=== PATIENT | male | born 1985 | race African-American/Black ===

== ENCOUNTER 2016-09-05 01:23 | Inpatient (IN) | payer BC, OTHER ==
[2016-09-05] VITALS (20 sets, daily range): BP systolic 129–178; BP diastolic 71–101; PULSE 75–117; RESP 18–89; TEMP 98.3; Ht 177.8 cm; Wt 78.8 kg
[~2016-09-05] VITALS: Ht 177.8 cm; Wt 78.8 kg
[~2016-09-05 01:23] MED LIST: CARV6.2545 PO; METO10TA92 PO; ONDA4TAB14 PO; PANT40TA3 PO; ULT50 PO
[2016-09-05] MEDS ORDERED: morphine 4 MG/ML VIAL IV STA ×2 (02:30→04:27)
[2016-09-05] MEDS ORDERED: ONDANSETRON 4 MG INJ IV STA (02:30)
[2016-09-05] MEDS ORDERED: hydrALAzine 20 MG INJ IV ONE ×2 (03:00→04:30)
[2016-09-05 03:33] LABS: ALBUMIN 4.5 g/dl (3.3-4.9); BASOPHILS % 0.5 % (0.0-2.0); EOSINOPHILS # 0.3 10^3/ul (0.0-0.5); EOSINOPHILS % 4.8 % (0.0-7.0); HEMATOCRIT 27.2 % (42.0-52.0); HEMOGLOBIN 9.2 g/dl (14.0-18.0); LYMPHOCYTES # 0.8 10^3/ul (0.8-2.9); LYMPHOCYTES % 13.5 % (15.0-51.0); MEAN CORPUSCULAR HEMOGLOBIN 30.1 pg (29.0-33.0); MEAN CORPUSCULAR HGB CONC 33.6 g/dl (32.0-37.0); MEAN CORPUSCULAR VOLUME 89.4 fl (82.0-101.0); MEAN PLATELET VOLUME 8.2 fl (7.4-10.4); MONOCYTE # 0.2 10^3/ul (0.3-0.9); MONOCYTES % 3.8 % (0.0-11.0); NEUTROPHIL # 4.8 10^3/ul (1.6-7.5); NEUTROPHILS % 77.4 % (39.0-77.0); PLATELET COUNT 197 10^3/UL (140-440); RED BLOOD COUNT 3.04 10^6/ul (4.70-6.10); RED CELL DISTRIBUTION WIDTH 16.7 % (11.5-14.5); UNCORRECTED WBC 6.2 10^3/ul (4.8-10.8); WHITE BLOOD COUNT 6.2 10^3/ul (4.8-10.8)
[2016-09-05 03:33] LABS: INR 1.11; PROTIME 14.3 Sec (12.2-14.2); PT RATIO 1.1
[2016-09-05 03:34] LABS: PARTIAL THROMBOPLASTIN TIME 34.7 Sec (25.0-35.0)
[2016-09-05 03:34] LABS: POTASSIUM 5.3 mmol/L (3.5-5.1)
[2016-09-05 03:36] LABS: BILIRUBIN,INDIRECT 0.6 mg/dl (0-1.1); BILIRUBIN,TOTAL 0.6 mg/dl (0.2-1.3)
[2016-09-05 03:37] LABS: CALCIUM 9.5 mg/dl (8.4-10.2)
[2016-09-05 03:46] LABS: CONDITION 1; LH ANALYZER COMMENTS 1
[2016-09-05 03:47] LABS: CREATININE 14.79 mg/dl (0.61-1.24)
[2016-09-05 03:48] LABS: TROPONIN-I 0.058 ng/ml (0.00-0.12)
--- NOTE | 2016-09-05 03:48 | RADRPT ---
PROCEDURE: CT of the abdomen and pelvis without contrast CLINICAL INDICATION: Patient experiencing Abdominal Pain. TECHNIQUE: Spiral CT images through the abdomen and pelvis without the use of contrast. The admin istered radiation dose is CTDI 8.55 and DLP 510.23. COMPARISON: 04/16/2013 FINDINGS: Lack of oral and intravenous contrast somewhat limits evaluation. The study is significantly limi yeison by patient breathing motion artifact. There has been interval development of mild cardiomegaly. Coronary artery calcification is seen. Slight dependent atelectasis of the lung bases is seen. N o pleural effusion is seen. Clips are seen from prior cholecystectomy. The liver is enlarged, amanda uring 23 cm in length. There is mild diffuse edema of the subcutaneous soft tissues. No gross foca l splenic lesions are seen. Diffuse atherosclerotic change of the abdomen and pelvis is seen. The kidneys are again noted to be enlarged with innumerable cysts and small calcifications. Some cysts are hemorrhagic or complex. The appearance is consistent with polycystic kidney disease. The pancr eas is suboptimally seen without contrast. No gross pancreatic mass is seen. Evaluation of the bow el is limited by lack of oral contrast. No gross bowel obstruction, free air, or abscess is seen. The bladder and prostate are unremarkable in appearance. Probable normal appendix is seen, contain ing a small of dense material within. Mild depression of the superior endplate of T11 and mild anter ior wedging of L1 are stable findings. IMPRESSION: Limited study due to patient motion and lack of contrast. Polycystic kidney disease. Interval deve lopment of cardiomegaly and progression of atherosclerotic change. Hepatomegaly. No gross bowel ob struction, free air, or abscess.. RPTAT: [facility] Physician Adonay Date Time Electronically viewed and signed by Physician Adonay on 09/05/2016 03:48 LE/
[2016-09-05] MEDS ORDERED: METOCLOPRAMIDE 10 MG INJ IV ONE (04:30)
[2016-09-05] MEDS ORDERED: NA POLYST SULFON 15 GM/60 ML BTL PO ONE (04:30)
[2016-09-05] MEDS ORDERED: ACETAMINOPHEN 325 MG TAB PO PRN ×2 (05:30→08:30)
[2016-09-05] MEDS ORDERED: ONDANSETRON 4 MG INJ IV PRN ×2 (05:30→08:30)
[2016-09-05] MEDS ORDERED: ASPIRIN 325 MG TAB PO ONE (07:00)
--- NOTE | 2016-09-05 07:06 | ERA ---
ER Documentation Chief Complaint Date/Time DATE: 09/05/16 TIME: 06:43 Chief Complaint sob, abd x 2 days HPI This 30-year-old male comes emergency room for shortness of breath and severe abdominal pain for the last 2 days. The pain is a sharp pain and is in his entire abdomen nothing makes it worse or better. He also complains of chest pain that is substernal and nonradiating. He missed his dialysis Tuesday because he didn't feel well. He believes the had dialysis on Tuesday. Physical in by his mother and does not believe that they can get him to dialysis today. He has nausea and vomiting is nonbloody and nonbilious. ROS All systems reviewed and are negative except as per history of present illness. Medications Home Meds Active Scripts Tramadol HCl (Tramadol HCl) 50 Mg Tablet, 50 MG PO Q6 Y for PAIN, #20 TAB Prov:ZURDO SUTHERLAND MD 07/06/16 Ondansetron (Ondansetron Odt) 4 Mg Tab.rapdis, 4 MG PO Q6H Y for NAUSEA AND/OR VOMITING, #30 TAB Prov:ZURDO SUTHERLAND MD 07/06/16 Reported Medications Pantoprazole* (Protonix*) 40 Mg Tablet.dr, 40 MG PO Y FOR GASTRIC UPSET 06/24/12 Carvedilol (Coreg) 6.25 Mg Tablet, 6.25 MG PO BID 06/24/12 Metoclopramide* (Reglan*) 10 Mg Tablet, 10 MG PO AC MEALS AND BEDTIME 06/24/12 Allergies Allergies: Coded Allergies: No Known Drug Allergies (Verified Allergy, Unknown, 07/06/16) PMhx/Soc History of Surgery: Yes (gallbladder removal 10) Anesthesia Reaction: No Hx Neurological Disorder: No Hx Respiratory Disorders: No Hx Cardiac Disorders: No Hx Psychiatric Problems: No Hx Miscellaneous Medical Probl: Yes (DM II, HTN, Renal failure, polysystic kidney disease) Hx Alcohol Use: No Hx Substance Use: Yes (Marijuana) Hx Tobacco Use: No Smoking Status: Unknown if ever smoked Physical Exam Vitals Vital Signs Date Time Temp Pulse Resp B/P Pulse Ox O2 Delivery O2 Flow Rate FiO2 09/05/16 04:40 114 24 169/125 100 Room Air 09/05/16 02:35 98.3 112 17 166/128 94 Room Air 09/05/16 01:25 98.9 59 18 173/116 92 Physical Exam Const: [] Mild distress, appears her and comfortable Head: Atraumatic Eyes: Normal Conjunctiva ENT: Normal External Ears, Nose and Mouth. Neck: Full range of motion..~ No meningismus. Resp: Decreased bibasilar breath sounds, otherwise good air movement Cardio: Regular rate and rhythm, no murmurs Abd: Soft, diffuse moderate abdominal tenderness without guarding or rebound , non distended. Normal bowel sounds Skin: No petechiae or rashes Back: No midline or flank tenderness Ext: No cyanosis, or edema Neur: Awake and alert and oriented 3, no focal deficits Psych: Normal Mood and Affect Result Diagram: 09/05/16 0300 09/05/16 0300 Results 24 hrs Laboratory Tests Test 09/05/16 02:30 09/05/16 03:00 Activated Partial Thromboplast Time 34.7Sec INR International Normalized Ratio 1.11 Prothrombin Time 14.3Sec Prothrombin Time Ratio 1.1 Alanine Aminotransferase (ALT/SGPT) 22IU/L Albumin 4.5g/dl Albumin/Globulin Ratio 1.00 Alkaline Phosphatase 188IU/L Anion Gap 28 Aspartate Amino Transf (AST/SGOT) 15IU/L Basophils # 0.010^3/ul Basophils % 0.5% Blood Morphology Comment Blood Urea Nitrogen 85mg/dl Calcium Level 9.5mg/dl Carbon Dioxide Level 20mmol/L Chloride Level 105mmol/L Creatinine 14.79mg/dl Direct Bilirubin 0.00mg/dl Eosinophils # 0.310^3/ul Eosinophils % 4.8% Globulin 4.50g/dl Glucose Level 86mg/dl Hematocrit 27.2% Hemoglobin 9.2g/dl Indirect Bilirubin 0.6mg/dl Lactic Acid Level 1.3mmol/L Lipase 254U/L Lymphocytes # 0.810^3/ul Lymphocytes % 13.5% Mean Corpuscular Hemoglobin 30.1pg Mean Corpuscular Hemoglobin Concent 33.6g/dl Mean Corpuscular Volume 89.4fl Mean Platelet Volume 8.2fl Monocytes # 0.210^3/ul Monocytes % 3.8% Neutrophils # 4.810^3/ul Neutrophils % 77.4% Nucleated Red Blood Cells # 0.010^3/ul Nucleated Red Blood Cells % 0.0/100WBC Platelet Count 79736^3/UL Potassium Level 5.3mmol/L Red Blood Count 3.0410^6/ul Red Cell Distribution Width 16.7% Sodium Level 148mmol/L Total Bilirubin 0.6mg/dl Total Protein 9.0g/dl Troponin I 0.058ng/ml White Blood Count 6.210^3/ul Current Medications Medications (Trade) Dose Ordered Sig/Lia Route PRN Reason Start Time Stop Time Status Last Admin Dose Admin Morphine Sulfate (morphine) 4 mg ONCE STAT IV 09/05/16 02:30 09/05/16 02:33 DC 09/05/16 03:07 Ondansetron HCl (Zofran Inj) 4 mg ONCE STAT IV 09/05/16 02:30 09/05/16 02:33 DC 09/05/16 03:06 Hydralazine HCl (Apresoline) 10 mg ONCE ONCE IV 09/05/16 03:00 09/05/16 03:01 DC 09/05/16 03:06 Hydralazine HCl (Apresoline) 20 mg ONCE ONCE IV 09/05/16 04:30 09/05/16 04:31 DC 09/05/16 05:02 Metoclopramide HCl (Reglan) 10 mg ONCE ONCE IV 09/05/16 04:30 09/05/16 04:31 DC 09/05/16 05:02 Morphine Sulfate (morphine) 4 mg ONCE STAT IV 09/05/16 04:27 09/05/16 04:29 DC 09/05/16 05:03 Sodium Polystyrene Sulfonate (Kayexalate) 30 gm ONCE ONCE PO 09/05/16 04:30 09/05/16 04:31 DC 09/05/16 05:02 Ondansetron HCl (Zofran Inj) 4 mg ER BRIDGE PRN IV NAUSEA AND/OR VOMITING 09/05/16 05:30 09/06/16 05:29 Acetaminophen (Tylenol Tab) 650 mg ER BRIDGE PRN PO MILD PAIN/FEVER 09/05/16 05:30 09/06/16 05:29 Procedures/MDM Abdominal pain and chest pain and patient admits dialysis. He has hyperkalemia. He was given Kayexalate emergency room but he vomited it. Given 4 of morphine for his abdominal pain which helped with a need another 4 because he started spreading from severe pain very shortly after. He was given Zofran, Reglan for his nausea. He also had very high blood pressure the face of chest pain making a hypertensive emergency. He was given hydralazine twice IV in order to lower his blood pressure. Spoke with the patient's mother and he said that she does not know how to arrange for dialysis today for him. Patient himself is not responsible and is not trustworthy enough to arrange dialysis for himself. He is not even sure if he went to dialysis on Tuesday or not. Spoke with Dr. Santiago who will be admitting the patient to telemetry. monitoring manager interpretation: Normal sinus rhythm without arrhythmia EKG interpretation: Normal sinus rhythm, normal axis, no ST or T-wave changes concerning for acute ischemia Abdominal CT interpretation: Limited by motion artifact but I see no obvious obstruction, fast stranding, free air, fractures Total care time 33 minutes: This includes treatment of her pretensive emergency with use of multiple doses IV vasoactive medications hydralazine, always the patient's bedside to assess cardiac status, chart review, discussion with admitting doctor patient patient's family. This does not include any billable procedures Departure Diagnosis: Primary Impression: Chest pain Additional Impressions: Acute on chronic renal failure Hyperkalemia Acute abdominal pain Condition: Stable KEIRA MCKEON DO Sep 05, 2016 06:54
[2016-09-05] MEDS ORDERED: FUROSEMIDE 40 MG INJ IV ONE (07:30)
[2016-09-05] MEDS ORDERED: DOCUSATE SODIUM 100 MG CAP PO PRN (08:30)
[2016-09-05] MEDS ORDERED: HYDROCODONE/APAP (5/325) TAB PO PRN (08:30)
[2016-09-05] MEDS ORDERED: morphine 2 MG INJ IV PRN (08:30)
[2016-09-05] MEDS ORDERED: NACL 0.9% 3 ML SYG IV SCH (08:30)
--- NOTE | 2016-09-05 10:41 | RADRPT ---
PROCEDURE: Chest 1 views. CLINICAL INDICATION: Shortness of breath TECHNIQUE: AP views of the chest were obtained. COMPARISON: April 16, 2013 FINDINGS: The heart is large. Right-sided dialysis catheter has its tip in the expected location of the distal superior vena cava. The lungs are hyperexpanded. No consolidations are identified. No pneumothora x is seen. Osseous structures are intact. IMPRESSION: Cardiomegaly . Right-sided dialysis catheter with its tip in the expected location of the distal superior vena cava . Hyperexpanded, clear lungs. RPTAT: AA .Oscar Nuñez MD, Date Time Electronically viewed and signed by .Oscar Nuñez MD, on 09/05/2016 10:40 .P/
--- NOTE | 2016-09-05 10:59 | HP ---
DATE OF ADMISSION: 09/05/2016 CHIEF COMPLAINT: Shortness of breath. HISTORY OF PRESENT ILLNESS: The patient is a 30-year-old male with a history of end-stage renal dis ease who presented to the ED with shortness of breath and abdominal pain for the past several days. This pain is a sharp pain in the entire abdomen. The patient missed dialysis for the past several days because he states that he was not feeling well. He follows up with Dr. Overton. He states that he receives dialysis every day except for Saturdays. The patient is a poor historian and is acutel y altered at this time, very lethargic. The patient reportedly did have nausea and vomiting that wa s nonbloody. Not much further history can be obtained from the patient. PAST MEDICAL HISTORY: End-stage renal disease, diabetes, hypertension, ____ disease. PAST SURGICAL HISTORY: Cholecystectomy. HOME MEDICATIONS: 1. Tramadol. 2. Zofran. 3. Protonix. 4. Coreg. 5. Reglan. ALLERGIES: NO KNOWN DRUG ALLERGIES. FAMILY HISTORY: Unknown. SOCIAL HISTORY: No reports of alcohol abuse. No reports of tobacco abuse. The patient uses mariju marguerite. REVIEW OF SYSTEMS: A 12-point review of systems is difficult to obtain as the patient is extremely lethargic at this time. PHYSICAL EXAMINATION: VITAL SIGNS: Temperature is 97.9, pulse 103, respiratory rate is 18, BP is 105/85, saturation 100% on room air. GENERAL: Altered. HEENT: Normocephalic, atraumatic. LUNGS: Clear to auscultation. CARDIOVASCULAR: Regular rate and rhythm. ABDOMEN: Nondistended, soft, tender to palpation in the epigastrium. EXTREMITIES: No clubbing, cyanosis, or edema. LABORATORIES: White count 6.2, hemoglobin is 9.2, platelets are 197. Chemistry: Sodium is 148, po tassium is 5.3, carbon dioxide is 20, anion gap is 28, BUN is 85, creatinine is 2.79. INR is 1.1. DIAGNOSTICS: Abdominal and pelvis CT shows limited study due to patient motion without contrast, po ssible kidney disease, cardiomegaly, hepatomegaly, no gross bowel obstruction, free air, or abscess. ASSESSMENT AND PLAN: 1. Acute encephalopathy, likely secondary to uremia. The patient will need dialysis. We will cons ult Dr. Overton who is the patient's chief lifestyle officer. 2. Shortness of breath likely secondary to volume overload. We will obtain a chest x-ray. Once ag ain, the patient will need dialysis. 3. Abdominal pain, etiology unclear. CT abdomen shows no acute findings, no obstruction, no absces s. We will monitor. 4. Hypertension. Continue home Coreg. 5. Prophylaxis. SCDs. Dictated By: RYLAND PATEL/FAUSTINO Conf#: [id number] DID#: [id number]
[2016-09-05] MEDS ORDERED: INFLUENZA VIRUS VACCINE 0.5 ML SYG IM* ONE (11:00)
--- NOTE | 2016-09-05 16:06 | CONS ---
Date/Time of Note Date/Time of Note DATE: 09/05/16 TIME: 15:46 Assessment/Plan Assessment/Plan Additional Assessment/Plan 1.Abd pain with nausea sec to unclear etiology 2.Nausea likely sec to uremia 3.Uremia sec to non compliant with outpt HD 4.Hyperkalemia sec to Ckd/non compliant with HD 5.Cardiomegaly sec to uncontrolled htn and ckd 6.ESRD on HD 7.ESRD sec to PCKD 8.Anemia sec to Ckd 9. Atherosclerotic heart disease 10.Hepatomegaly 11.Hypernatremia sec to poor po intake -HD today and in am -HD orders d/w HD RN -Monitor bp -GI eval for abd pain -Check amylase/lipase -Check iron studies. Epogen for anemia -Med list reviewed -Pt was seen by Dr Lux at [facility] Consultation Date/Type/Reason Admit Date/Time Sep 05, 2016 at 05:21 Reason for Consultation ESRD on HD Hx of Present Illness 30yo male well known to our service for recurrent admissions at [facility] for abd pain and non compliance with outpt HD. Pt presented to the ER sob, complaining of abd pain. Pt reports mild nausea but no diarrhea. Pts CT Abd shows findings consistent with PCKD and cardiomegaly. No acute findings were reported. CXR showed cardiomegaly. Pt reports not having had HD for several treatments because of his symptoms. His bp has been controlled. Pt denies symptoms of orthopnea and PND. K 5.3 on admission. Pt has a right IJ dialysis catheter thru which he receives HD. Pt reports no fevers or chills. No chest pain or palpitations Gastrointestinal: pain (abd pain, none at the time of my evaluation) Past Surgical History Past Surgical Hx: other (Right IJ HD catheter placement) Family History Significant Family History: no pertinent family hx Social History Alcohol Use: none Smoking Status: Never smoker Exam/Review of Systems Vital Signs Vitals Vital Signs Date Time Temp Pulse Resp B/P Pulse Ox O2 Delivery O2 Flow Rate FiO2 09/05/16 15:14 98.3 74 18 129/71 94 09/05/16 08:00 3.0 09/05/16 06:45 Room Air Exam Neck: other (Right IJ HD catheter) Results Result Diagram: 09/05/16 0300 09/05/16 0300 Results 24 hrs Laboratory Tests Test 09/05/16 02:30 09/05/16 03:00 Activated Partial Thromboplast Time 34.7 INR International Normalized Ratio 1.11 Prothrombin Time 14.3 H Prothrombin Time Ratio 1.1 Alanine Aminotransferase (ALT/SGPT) 22 Albumin 4.5 Albumin/Globulin Ratio 1.00 Alkaline Phosphatase 188 H Anion Gap 28 H Aspartate Amino Transf (AST/SGOT) 15 Basophils # 0.0 Basophils % 0.5 Blood Morphology Comment Blood Urea Nitrogen 85 H Calcium Level 9.5 Carbon Dioxide Level 20 L Chloride Level 105 Creatinine 14.79 H Direct Bilirubin 0.00 Eosinophils # 0.3 Eosinophils % 4.8 Globulin 4.50 H Glucose Level 86 Hematocrit 27.2 L Hemoglobin 9.2 L Indirect Bilirubin 0.6 Lactic Acid Level 1.3 Lipase 254 Lymphocytes # 0.8 Lymphocytes % 13.5 L Mean Corpuscular Hemoglobin 30.1 Mean Corpuscular Hemoglobin Concent 33.6 Mean Corpuscular Volume 89.4 Mean Platelet Volume 8.2 Monocytes # 0.2 L Monocytes % 3.8 Neutrophils # 4.8 Neutrophils % 77.4 H Nucleated Red Blood Cells # 0.0 Nucleated Red Blood Cells % 0.0 Platelet Count 197 Potassium Level 5.3 H Red Blood Count 3.04 L Red Cell Distribution Width 16.7 H Sodium Level 148 H Total Bilirubin 0.6 Total Protein 9.0 H Troponin I 0.058 White Blood Count 6.2 Medications Medications Current Medications Ondansetron HCl (Zofran Inj) 4 mg Q6H PRN IV NAUSEA AND/OR VOMITING; Start 09/05 at 08:30 Acetaminophen (Tylenol Tab) 650 mg Q6H PRN PO PAIN LEVEL 1-3 OR FEVER; Start at 08:30 Acetaminophen/ Hydrocodone Bitart ([place] (5/325)) 1 tab Q6H PRN PO MODERATE PAIN LEVEL 4-6; Start 09/05/16 at 08:30 Morphine Sulfate (morphine) 2 mg Q4H PRN IV SEVERE PAIN LEVEL 7-10; Start at 08:30 Docusate Sodium (Colace) 100 mg Q12H PRN PO CONSTIPATION; Start 09/05/16 at 08: 30 Pantoprazole (Protonix Iv) 40 mg DAILY@06 IV ; Start 09/06/16 at 06:00 Carvedilol (Coreg) 6.25 mg BID PO ; Start 09/05/16 at 09:00 DESIREE LOPES Sep 05, 2016 16:00
[2016-09-05] MEDS ORDERED: LACTULOSE 30ML CUP PO PRN (17:00)
[2016-09-05 17:25] LABS: IRON 69 ug/dl (35-150)
[2016-09-05 17:26] LABS: AMYLASE 156 U/L (11-123)
[2016-09-05] MEDS ORDERED: GLUCOSE GEL 15 GRAM TUBE PO PRN ×2 (17:30)
[2016-09-05] MEDS ORDERED: DEXTROSE 50% 50 ML SYRINGE IV PRN ×2 (17:30)
[2016-09-05] MEDS ORDERED: GLUCOSE GEL 15 GRAM TUBE BUCCAL PRN (17:30)
[2016-09-05] MEDS ORDERED: GLUCAGON 1 MG INJ IM PRN (17:30)
[2016-09-05 17:34] LABS: TOTAL IRON BINDING CAPACITY 227 ug/dl (241-421)
[2016-09-05] MEDS ORDERED: INSULIN ASPART [NOVOLOG] 3 ML PEN SC SCH (17:55)
[2016-09-06] MEDS ORDERED: ACCUCHECK XX SCH (02:00)
[2016-09-06] MEDS ORDERED: PANTOPRAZOLE 40 MG INJ IV SCH (06:00)
[2016-09-06] MEDS ORDERED: EPOETIN 10000 UNITS/1 ML INJ (ESRD) SC SCH (17:00)
== END 2016-09-05 20:41 | disposition left against medical advice (07) | DRG 640 ==
LOC: E/R 01:23 → TEL 05:21
PROVIDERS: ADMIT Internal Medicine; ATTEND Internal Medicine
DX: E87.70 Fluid overload, unspecified (principal); N18.6 End stage renal disease; E87.0 Hyperosmolality and hypernatremia; I12.0 Hypertensive chronic kidney disease with stage 5 chronic kidney disease or end stage renal disease; Z99.2 Dependence on renal dialysis; Z91.15 Patient's noncompliance with renal dialysis; D63.1 Anemia in chronic kidney disease; R10.9 Unspecified abdominal pain; E87.5 Hyperkalemia
CPT/HCPCS: 71010; 74176; 80053; 82150; 82962; 83540; 83605; 83690; 84134; 84484; 85025; 85610; 85730; 90686; 90935; 93005; J0360; J1815; J1940; J2270; J2405; J2765

== ENCOUNTER 2016-11-28 02:37 | Inpatient (IN) | payer BC ==
[2016-11-28] VITALS (23 sets, daily range): BP systolic 136–192; BP diastolic 83–117; PULSE 69–140; RESP 16–24; TEMP 97.6; Ht 177.8 cm; Wt 81.6 kg
[~2016-11-28] VITALS: Ht 177.8 cm; Wt 81.6 kg
[~2016-11-28 02:37] MED LIST changes: +TRAM50TA2 PO; -ULT50 PO
--- NOTE | 2016-11-28 03:54 | RADRPT ---
PROCEDURE: XR Chest. CLINICAL INDICATION: Abdominal Pain TECHNIQUE: Portable single view of the chest COMPARISON: 09/05/2016 FINDINGS: Again seen is cardiomegaly and double-lumen right internal jugular catheter. Lung volumes are sligh tly reduced compared with prior but no definite acute infiltrate, pleural effusion, or overt congest mehreen heart failure is seen. No bony abnormality is seen. IMPRESSION: Shallower lung inflation. No definite acute disease. RPTAT: HLBE Jessica Bernal Physician Date Time Electronically viewed and signed by Jessica Bernal, Physician on 11/28/2016 03:54 LE/
--- NOTE | 2016-11-28 04:28 | ERD ---
ER Documentation Chief Complaint Date/Time DATE: 11/28/16 TIME: 04:27 Chief Complaint SOB, dialysis pt_dialyzed , insomnia HPI 30-year-old man presents with shortness of breath and complaints of pain, requesting "medications" he is chronically noncompliant with dialysis states he was due on Tuesday but he missed it. He denies fevers or chills, no vomiting or diarrhea, no chest pain, no melena or blood per rectum. ROS All systems reviewed and are negative except as per history of present illness. Medications Home Meds Active Scripts Tramadol HCl (Tramadol HCl) 50 Mg Tablet, 50 MG PO Q6 Y for PAIN, #20 TAB Prov:ZURDO SUTHERLAND MD 07/06/16 Ondansetron (Ondansetron Odt) 4 Mg Tab.rapdis, 4 MG PO Q6H Y for NAUSEA AND/OR VOMITING, #30 TAB Prov:ZURDO SUTHERLAND MD 07/06/16 Reported Medications Pantoprazole* (Protonix*) 40 Mg Tablet.dr, 40 MG PO Y FOR GASTRIC UPSET 06/24/12 Carvedilol (Coreg) 6.25 Mg Tablet, 6.25 MG PO BID 06/24/12 Metoclopramide* (Reglan*) 10 Mg Tablet, 10 MG PO AC MEALS AND BEDTIME 06/24/12 Allergies Allergies: Coded Allergies: No Known Drug Allergies (Verified Allergy, Unknown, 07/06/16) PMhx/Soc Anxiety, chronic pain syndrome, drug abuse and opioid dependence, cardiomyopathy , hypertension, medication noncompliance, diabetes mellitus, end-stage kidney disease on hemodialysis, chronic uremia, anemia History of Surgery: Yes (CHOLECYSTECTOMY, BILATERAL FEET PARTIAL AMPUTEE, R CW PERMACATH) Anesthesia Reaction: No Hx Neurological Disorder: No Hx Respiratory Disorders: No Hx Cardiac Disorders: Yes (HTN) Hx Psychiatric Problems: No Hx Miscellaneous Medical Probl: Yes (ESRD WITH HD) Hx Alcohol Use: No Hx Substance Use: Yes (MARIJUANA) Hx Tobacco Use: No Smoking Status: Current every day smoker FmHx Family History: No diabetes Physical Exam Vitals Vital Signs Date Time Temp Pulse Resp B/P Pulse Ox O2 Delivery O2 Flow Rate FiO2 11/28/16 04:30 100 2.0 28 11/28/16 03:43 Nasal Cannula 2 11/28/16 03:33 98.4 116 21 160/126 97 Room Air 11/28/16 02:41 99.3 114 20 178/120 94 Physical Exam GENERAL: Well-developed, well-nourished, anxious, hypertensive, appears intoxicated with either opioid analgesics or benzodiazepines HEENT: Dry mucous membranes, pink conjunctiva, no cervical spine tenderness or step-off deformities, no goiter, no jaundice or icterus, extraocular movements intact without pain. No submandibular induration, and no pharyngeal erythema NEURO: Alert and oriented 3, cranial nerves II through XII intact bilaterally, pupils equal round reactive to light, no focal deficits or facial asymmetry, sensation intact distally Strength 5/5 in upper and lower extremities bilaterally CARDIAC: Tachycardic and regular no murmurs rubs or gallops LUNGS: Bibasilar crackles, no wheezing or stridor ABDOMEN: Soft nontender, no guarding, no rigidity, no rebound, no psoas sign no obturator sign. Normoactive bowel sounds SKIN: Warm and dry to touch, no abrasions, contusions, or hematomas, no lacerations, no ecchymosis, no target lesions, and without ulcers EXTREMITIES: 2+ pitting edema in the lower extremities bilaterally, calves are bilaterally symmetrical, no Homans sign, no popliteal cord sign. Distal pulses equal and bilateral PSYCH: Agitated, crying Result Diagram: 11/28/16 0330 11/28/16 0330 Results 24 hrs Laboratory Tests Test 11/28/16 03:30 11/28/16 04:16 White Blood Count 6.710^3/ul Red Blood Count 2.9510^6/ul Hemoglobin 8.8g/dl Hematocrit 27.3% Mean Corpuscular Volume 92.5fl Mean Corpuscular Hemoglobin 29.8pg Mean Corpuscular Hemoglobin Concent 32.2g/dl Red Cell Distribution Width 17.7% Platelet Count 82313^3/UL Mean Platelet Volume 9.6fl Neutrophils % 71.6% Lymphocytes % 19.5% Monocytes % 5.7% Eosinophils % 2.5% Basophils % 0.3% Nucleated Red Blood Cells % 0.0/100WBC Neutrophils # 4.810^3/ul Lymphocytes # 1.310^3/ul Monocytes # 0.410^3/ul Eosinophils # 0.210^3/ul Basophils # 0.010^3/ul Nucleated Red Blood Cells # 0.010^3/ul Sodium Level 137mmol/L Potassium Level 4.8mmol/L Chloride Level 95mmol/L Carbon Dioxide Level 23mmol/L Anion Gap 24 Blood Urea Nitrogen 55mg/dl Creatinine 10.87mg/dl Glucose Level 214mg/dl Calcium Level 9.2mg/dl Total Bilirubin 0.7mg/dl Direct Bilirubin 0.00mg/dl Indirect Bilirubin 0.7mg/dl Aspartate Amino Transf (AST/SGOT) 25IU/L Alanine Aminotransferase (ALT/SGPT) 29IU/L Alkaline Phosphatase 148IU/L Troponin I Pending Total Protein 7.5g/dl Albumin 3.7g/dl Globulin 3.80g/dl Albumin/Globulin Ratio 0.97 Lipase 124U/L Ammonia 24umol/l Current Medications Medications (Trade) Dose Ordered Sig/Lia Route PRN Reason Start Time Stop Time Status Last Admin Dose Admin Lorazepam (Ativan) 0.5 mg ONCE ONCE PO 11/28/16 05:00 11/28/16 05:01 DC 11/28/16 05:03 Lorazepam (Ativan) 0.5 mg ONCE ONCE IV 11/28/16 05:30 11/28/16 05:31 Procedures/MDM IV line was established patient was placed on marketing underwriter rhythm strip revealed a sinus tachycardia at 120 bpm with upright P and T waves. Patient was afebrile. One view chest x-ray performed, read by me there is hemodialysis catheter in the right chest and cardiomegaly with atelectatic changes bilaterally and bilateral pulmonary vascular congestion, no acute infiltrates, no pneumothorax. EKG performed, read by me revealed a sinus tachycardia at 115 bpm, normal axis, narrow QRS complex, no concerning ST elevations or depressions noted. CBC reveals anemia with hematocrit of 27, electrolytes reveal kidney failure with a BUN/creatinine of 55/11, liver function tests normal, troponin was negative. Ammonia level was normal. CT scan of the brain was performed is negative for acute bleed mass or shift. Patient will be admitted to [facility] for continued medical management and hemodialysis. Departure Diagnosis: Primary Impression: Chronic pain Chronic pain type: chronic pain syndrome Qualified Code: G89.4 - Chronic pain syndrome Additional Impressions: End stage kidney disease Anemia Anemia type: unspecified type Qualified Code: D64.9 - Anemia, unspecified type Condition: MELISSA Rudd MD Nov 28, 2016 04:28
[2016-11-28 04:33] LABS: ADD SCAN DIFF NO
[2016-11-28 04:41] LABS: BASOPHILS % 0.3 % (0.0-2.0); EOSINOPHILS # 0.2 10^3/ul (0.0-0.5); EOSINOPHILS % 2.5 % (0.0-7.0); HEMATOCRIT 27.3 % (42.0-52.0); HEMOGLOBIN 8.8 g/dl (14.0-18.0); LYMPHOCYTES # 1.3 10^3/ul (0.8-2.9); LYMPHOCYTES % 19.5 % (15.0-51.0); MEAN CORPUSCULAR HEMOGLOBIN 29.8 pg (29.0-33.0); MEAN CORPUSCULAR HGB CONC 32.2 g/dl (32.0-37.0); MEAN CORPUSCULAR VOLUME 92.5 fl (82.0-101.0); MEAN PLATELET VOLUME 9.6 fl (7.4-10.4); MONOCYTE # 0.4 10^3/ul (0.3-0.9); MONOCYTES % 5.7 % (0.0-11.0); NEUTROPHIL # 4.8 10^3/ul (1.6-7.5); NEUTROPHILS % 71.6 % (39.0-77.0); PLATELET COUNT 193 10^3/UL (140-415); RED BLOOD COUNT 2.95 10^6/ul (4.70-6.10); RED CELL DISTRIBUTION WIDTH 17.7 % (11.5-14.5); WHITE BLOOD COUNT 6.7 10^3/ul (4.8-10.8)
[2016-11-28 04:52] LABS: ALBUMIN 3.7 g/dl (3.3-4.9)
[2016-11-28 04:53] LABS: POTASSIUM 4.8 mmol/L (3.5-5.1)
[2016-11-28 04:55] LABS: ALBUMIN/GLOBULIN RATIO 0.97; BILIRUBIN,INDIRECT 0.7 mg/dl (0-1.1); BILIRUBIN,TOTAL 0.7 mg/dl (0.2-1.3); CREATININE 10.87 mg/dl (0.61-1.24); TOTAL PROTEIN 7.5 g/dl (6.1-8.1)
[2016-11-28 04:56] LABS: CALCIUM 9.2 mg/dl (8.4-10.2)
[2016-11-28] MEDS ORDERED: LORAZEPAM 0.5 MG TAB PO ONE (05:00)
[2016-11-28 05:06] LABS: TROPONIN-I 0.074 ng/ml (0.00-0.12)
--- NOTE | 2016-11-28 05:10 | RADRPT ---
PROCEDURE: CT BRAIN WITHOUT CONTRAST CLINICAL INDICATION: 30-year-old male with altered level of consciousness. TECHNIQUE: The study was performed utilizing a GE drop.iopeed VCT 64-slice CT scanner. Direct axia l sections were obtained from the foramen magnum to the vertex without the use of intravenous contra st material. Sagittal and coronal reformations were obtained. One or more the following dose reduct ion techniques were utilized: automated exposure control, adjustment of the mA and/or kV according t o patient's size or use of iterative reconstruction technique. The images were viewed on a PACS [employer]. CTD/vol = 44.3 mGy; Total Exam DLP = 720.2 mGy-cm. COMPARISON: None. FINDINGS: The ventricles have a normal size, shape and position. There is no evidence for mass effect or midl ine shift. There are no intracranial areas of abnormal attenuation. There is no evidence for acute intra or extra-axial blood. The bony calvarium is intact. The partially visualized paranasal sinuse s and mastoid air cells are without significant abnormal soft tissue. IMPRESSION: Unremarkable noncontrast CT scan of the brain. .Hermann Dean MD, Date Time Electronically viewed and signed by .Hermann Dean MD, on 11/28/2016 05:10 .M/
[2016-11-28] MEDS ORDERED: LORAZEPAM 2 MG INJ IV ONE ×2 (05:30→07:00)
[2016-11-28] MEDS ORDERED: ACETAMINOPHEN 325 MG TAB PO PRN (07:00)
[2016-11-28] MEDS ORDERED: hydrALAzine 20 MG INJ IV ONE (07:00)
[2016-11-28] MEDS ORDERED: ONDANSETRON 4 MG INJ IV PRN (07:00)
[2016-11-28] MEDS ORDERED: traMADol 50 MG TAB PO PRN (07:00)
[2016-11-28] MEDS ORDERED: hydrALAzine 20 MG INJ IV PRN (07:00)
[2016-11-28] MEDS ORDERED: LORAZEPAM 2 MG INJ IV PRN ×2 (07:00→16:45)
[2016-11-28] MEDS: METOCLOPRAMIDE 10 MG TAB PO SCH ×3 (07:56→17:31)
[2016-11-28] MEDS ORDERED: PANTOPRAZOLE (EC) 40 MG TAB PO SCH (08:00)
[2016-11-28] MEDS: INSULIN ASPART [NOVOLOG] 3 ML PEN SC SCH ×3 (08:15→17:30)
[2016-11-28] MEDS ORDERED: GLUCOSE GEL 15 GRAM TUBE BUCCAL PRN (08:30)
[2016-11-28] MEDS ORDERED: GLUCAGON 1 MG INJ IM PRN (08:30)
[2016-11-28] MEDS ORDERED: DEXTROSE 50% 50 ML SYRINGE IV PRN ×2 (08:30)
[2016-11-28] MEDS ORDERED: GLUCOSE GEL 15 GRAM TUBE PO PRN ×2 (08:30)
[2016-11-28] MEDS ORDERED: LORAZEPAM 2 MG INJ IV STA (08:40)
--- NOTE | 2016-11-28 11:08 | CONS ---
DATE OF ADMISSION: 11/28/2016 DATE OF CONSULTATION: 11/28/2016 TYPE OF CONSULTATION: Nephrology. REASON FOR CONSULTATION: End-stage renal disease, shortness of breath, and agitation. HISTORY OF PRESENT ILLNESS: This is a 30-year-old male with the past medical history of end-stage r enal disease with unknown hemodialysis schedule, possibly Tuesday, , and Tuesday, who prese nts to [facility] with shortness of breath stating that he missed his dialysis on Tuesday. The patient has a history of medical noncompliance, history of hypertension, anemia. Upo n arrival to the emergency room, the patient had a CT scan of the brain which was negative for acute bleed as the patient was hypertensive with systolic pressures in the 180s. The patient also had a chest x-ray which showed low lung shallow lung cervantes, no definitive acute disease. In the emergenc y room, the patient was given Clonidine and Ativan due to agitation and admitted to med/surg. The p atient, while on med/surg, had acute decompensation and became more agitated and tachypneic, and was transferred to telemetry. Currently, upon my evaluation, the patient is lethargic, tachypneic on 1 00% nonrebreather, unable to answer questions. There have been no reports of hemoptysis, hemetemesi s, hematochezia. PAST MEDICAL HISTORY: End-stage renal disease, history of hypertension, history of medical noncompl iance, history of gastroesophageal reflux disease. Also, history of diabetes. PAST SURGICAL HISTORY: Status post PermCath placement. ALLERGIES: NO KNOWN DRUG ALLERGIES. FAMILY HISTORY: Noncontributory. SOCIAL HISTORY: Unknown. REVIEW OF SYSTEMS: Unable to do adequate review of systems as patient is altered. Pertinent positi ves obtained by reviewing medical records, speaking to hospital staff, stated in HPI, otherwise nega tive. PHYSICAL EXAMINATION: VITAL SIGNS: Blood pressure is 161/130, respirations 26, pulse 110, temperature 97.6. HEENT: Head is normocephalic. Pupils are reactive to light. NECK: Supple. HEART: Tachycardic. LUNGS: Show diminished breath sounds at base. ABDOMEN: Soft, nontender to palpation. No rebound or guarding. EXTREMITIES: Negative for clubbing, cyanosis. Positive edema. DERMATOLOGIC: No rashes. MUSCULOSKELETAL: No joint effusions. NEUROLOGIC: Limited exam due to lack of patient cooperation, but no obvious focal deficits. LABORATORY DATA: Shows sodium 137, potassium 4.8, chloride 95, BUN 55, creatinine 2.87. White coun t 6.7, hemoglobin 8.8, hematocrit 27.3, platelet count is 193. IMAGING STUDIES: As stated in HPI. ASSESSMENT AND PLAN: This is a 30-year-old male who presents with 1. End-stage renal disease. Last hemodialysis unknown. Dialysis schedule unknown. The patient's access is PermCath. Plan is for urgent hemodialysis for solute clearance and volume removal. The p atient has volume overload clinically and is tachypneic in respiratory failure. We will dialyze for 3 hours, 2K bath, calcium 2.5. We will monitor dialysis closely. 2. Acute hypoxemic respiratory failure. Etiology is possibly due to volume overload. We will cont inue dialyze the patient as stated above and monitor closely. Consider a pulmonary consult. The pa kori is currently on 100% nonrebreather. 3. Anemia of chronic disease. Continue to monitor H and H levels. We will give Epogen as needed. 4. Mineral bone disorder. Continue to monitor calcium and phosphorus levels. Defer phosphate bind ers at this time. 5. Hypertensive urgency in part due to increased intravascular volume. We will ultrafiltrate with hemodialysis. Continue current blood pressure regimen. 6. Acute encephalopathy. Etiology may be secondary to underlying uremia. Questionable polysubstan ce abuse. Would recommend to check a tox screen. Continue dialysis. 7. History of medical noncompliance. 8. History of diabetes. Continue Accu-Cheks and insulin sliding scale. Thank you, Dr. Bill, for this interesting consultation. It will be a pleasure to follow the patient with you throughout the hospital course. Dictated By: SHAJI SANTIAGO/FAUSTINO Conf#: [id number] DID#: [id number]
[2016-11-28] MEDS ORDERED: HEPARIN 1000 UNITS/ML 10 ML INJ CATHETER ONE (11:30)
--- NOTE | 2016-11-28 11:51 | HP ---
Date/Time of Note Date/Time of Note DATE: 11/28/16 TIME: 11:41 Assessment/Plan VTE Prophylaxis VTE Prophylaxis Intervention: heparin Lines/Catheters IV Catheter Type (from Nrs): Saline Lock Assessment/Plan Assessment/Plan 1. Shortness of Breath, after missed dialysis - will place a nephrology consult 2. ESRD on HD - see above 3. Anxiety - will provide anti-anxiety meds 4. HTN: not at goal - cont DORON meds with adjustment as needed. expect further improvement after dialysis HPI/ROS Admit Date/Time Admit Date/Time Nov 28, 2016 at 05:15 Hx of Present Illness The patient is a 30-year-old male with a history of end-stage renal disease, HTN and anemia who presented to the ED with shortness of breath after missing dialysis and anxiety. In ER, BP was 178/120 with HR of 114. Cr ~ 11, BUN 55, K+ 4.8 and HCO3 23. CXR showed Lung volumes are slightly reduced compared with prior but no definite acute infiltrate, pleural effusion, or overt congestive heart failure is seen. Head CT neg for cute findings. . PMH/Family/Social Past Medical History Medical History: hypertension, renal disease Past Surgical History Past Surgical Hx: other Social History Alcohol Use: none Smoking Status: Never smoker Drug Use: marijuana Exam/Review of Systems Vital Signs Vitals Vital Signs Date Time Temp Pulse Resp B/P Pulse Ox O2 Delivery O2 Flow Rate FiO2 11/28/16 11:38 98.2 101 20 144/87 98 11/28/16 08:00 Nasal Cannula 5.0 11/28/16 04:30 28 Exam Constitutional: distress, other (moderate anxiety and shortness of breath) Head: atraumatic, normocephalic Eyes: EOMI, PERRL Respiratory: diminished breath sounds Cardiovascular: other (tachycardic with regular rhythm) Gastrointestinal: non-tender, soft Extremities: edema, other (bilateral toe amputated) Labs Result Diagram: 11/28/16 03311/28/16 033 Medications Medications Current Medications Hydralazine HCl (Apresoline) 10 mg Q4H PRN IV sbp above 160 Last administered on 11/28/16t 11:02; Admin Dose 10 MG; Start 11/28/16 at 07:00 Lorazepam (Ativan) 1 mg Q6H PRN IV anxiety Last administered on 11/28/16 10:20 ; Admin Dose 1 MG; Start 11/28/16 at 07:00 Acetaminophen (Tylenol Tab) 650 mg Q6H PRN PO PAIN AND OR ELEVATED TEMP; Start 11/28/16 at 07:00 Ondansetron HCl (Zofran Inj) 4 mg Q6H PRN IV NAUSEA AND/OR VOMITING; Start 11/28 at 07:00 Carvedilol (Coreg) 6.25 mg BID PO Last administered on 11/28/16 08:03; Admin Dose 6.25 MG; Start 11/28/16 at 08:00 Tramadol HCl (Ultram) 50 mg Q6 PRN PO PAIN; Start 11/28/16 at 07:00 Diagnostic Test (Pha) (Accu-Chek) 1 ea 02 XX ; Start 11/29/16 at 02:00 Miscellaneous Information 1 ea NOTE XX ; Start 11/28/16 at 08:30 Glucose (Glutose) 15 gm Q15M PRN PO DECREASED GLUCOSE; Start 11/28/16 at 08:30 Glucose (Glutose) 22.5 gm Q15M PRN PO DECREASED GLUCOSE; Start 11/28/16 at 08:30 Dextrose (D50w Syringe) 25 ml Q15M PRN IV DECREASED GLUCOSE; Start 11/28/16 at 08:30 Dextrose (D50w Syringe) 50 ml Q15M PRN IV DECREASED GLUCOSE; Start 11/28/16 at 08:30 Glucagon (Glucagen) 1 mg Q15M PRN IM DECREASED GLUCOSE; Start 11/28/16 at 08:30 Glucose (Glutose) 15 gm Q15M PRN BUCCAL DECREASED GLUCOSE; Start 11/28/16 at 08: 30 CHENTE STEEL MD Nov 28, 2016 11:51
--- NOTE | 2016-11-28 17:26 | CONS ---
Date/Time of Note Date/Time of Note DATE: 11/28/16 TIME: 17:17 Assessment/Plan Assessment/Plan Chief Complaint/Hosp Course Assessment: Nonsustained ventricular tachycardia Accelerated hypertension - blood pressures now improved Shortness of breath - ? volume overload, though not grossly overloaded by exam Acute encephalopathy End-stage renal disease - on hemodialysis per nephrology Polycystic kidney disease Anemia Medical noncompliance Recommendations: -continue telemetry monitoring -obtain transthoracic echocardiogram -check magnesium - keep K>4 and Mg>2 -increase carvedilol to 12.5mg BID Problems: Consultation Date/Type/Reason Admit Date/Time Nov 28, 2016 at 05:15 Type of Consultation: Cardiology Reason for Consultation ventricular tachycardia Hx of Present Illness The patient is a 30 year-old male with end-stage renal disease who presents with shortness of breath after missing hemodialysis. Since admission, he was noted on telemetry to have short runs of nonsustained ventricular tachycardia up to six beats. It is uncertain if the patient has any underlying cardiac disease. The patient is lethargic (? from Ativan) and not cooperative with providing any history. Unable to obtain, patient is lethargic. Past Medical History End-stage renal disease - on hemodialysis Polycystic kidney disease Hypertension Anemia Medical noncompliance Past Surgical History Unable to obtain Family History Significant Family History: other (unable to obtain) Social History Unable to obtain Smoking Status: Never smoker Exam/Review of Systems Vital Signs Vitals Vital Signs Date Time Temp Pulse Resp B/P Pulse Ox O2 Delivery O2 Flow Rate FiO2 11/28/16 16:14 98.2 97 20 136/87 98 11/28/16 12:00 Nasal Cannula 6.0 11/28/16 04:30 28 Exam Constitutional: No alert, No distress Psych: other (lethargic), No nl mood/affect Head: atraumatic, normocephalic Eyes: nl conjunctiva, nl lids ENMT: nl external ears & nose, nl nasal mucosa & septum Neck: non-tender, supple, No jvd Respiratory: clear to auscultation, No crackles/rales Cardiovascular: regular rate and rhythm Gastrointestinal: non-tender, soft Musculoskeletal: nl extremities to inspection Extremities: No clubbing, No cyanosis, No edema Neurological: lethargic, No nl mental status, No nl speech Results Result Diagram: 11/28/16 0330 11/28/16 0330 Results 24 hrs Laboratory Tests Test 11/28/16 03:30 11/28/16 04:16 11/28/16 08:02 11/28/16 09:32 White Blood Count 6.7 Red Blood Count 2.95 L Hemoglobin 8.8 L Hematocrit 27.3 L Mean Corpuscular Volume 92.5 Mean Corpuscular Hemoglobin 29.8 Mean Corpuscular Hemoglobin Concent 32.2 Red Cell Distribution Width 17.7 H Platelet Count 193 Mean Platelet Volume 9.6 Neutrophils % 71.6 Lymphocytes % 19.5 Monocytes % 5.7 Eosinophils % 2.5 Basophils % 0.3 Nucleated Red Blood Cells % 0.0 Neutrophils # 4.8 Lymphocytes # 1.3 Monocytes # 0.4 Eosinophils # 0.2 Basophils # 0.0 Nucleated Red Blood Cells # 0.0 Sodium Level 137 Potassium Level 4.8 Chloride Level 95 L Carbon Dioxide Level 23 Anion Gap 24 H Blood Urea Nitrogen 55 H Creatinine 10.87 H Glucose Level 214 Calcium Level 9.2 Total Bilirubin 0.7 Direct Bilirubin 0.00 Indirect Bilirubin 0.7 Aspartate Amino Transf (AST/SGOT) 25 Alanine Aminotransferase (ALT/SGPT) 29 Alkaline Phosphatase 148 H Troponin I 0.074 Total Protein 7.5 Albumin 3.7 Globulin 3.80 H Albumin/Globulin Ratio 0.97 Lipase 124 Ammonia 24 Bedside Glucose 129 137 Test 11/28/16 12:15 Bedside Glucose 109 Medications Medications Current Medications Hydralazine HCl (Apresoline) 10 mg Q4H PRN IV sbp above 160 Last administered on 11/28/16 11:02; Admin Dose 10 MG; Start 11/28/16 at 07:00 Acetaminophen (Tylenol Tab) 650 mg Q6H PRN PO PAIN AND OR ELEVATED TEMP; Start 11/28/16 at 07:00 Ondansetron HCl (Zofran Inj) 4 mg Q6H PRN IV NAUSEA AND/OR VOMITING; Start 11/28 at 07:00 Carvedilol (Coreg) 6.25 mg BID PO Last administered on 11/28/16 08:03; Admin Dose 6.25 MG; Start 11/28/16 at 08:00 Tramadol HCl (Ultram) 50 mg Q6 PRN PO PAIN Last administered on 11/28/16 16:48 ; Admin Dose 50 MG; Start 11/28/16 at 07:00 Diagnostic Test (Pha) (Accu-Chek) 1 ea 02 XX ; Start 11/29/16 at 02:00 Miscellaneous Information 1 ea NOTE XX ; Start 11/28/16 at 08:30 Glucose (Glutose) 15 gm Q15M PRN PO DECREASED GLUCOSE; Start 11/28/16 at 08:30 Glucose (Glutose) 22.5 gm Q15M PRN PO DECREASED GLUCOSE; Start 11/28/16 at 08:30 Dextrose (D50w Syringe) 25 ml Q15M PRN IV DECREASED GLUCOSE; Start 11/28/16 at 08:30 Dextrose (D50w Syringe) 50 ml Q15M PRN IV DECREASED GLUCOSE; Start 11/28/16 at 08:30 Glucagon (Glucagen) 1 mg Q15M PRN IM DECREASED GLUCOSE; Start 11/28/16 at 08:30 Glucose (Glutose) 15 gm Q15M PRN BUCCAL DECREASED GLUCOSE; Start 11/28/16 at 08: 30 Lorazepam (Ativan) 1 mg Q4H PRN IV anxiety Last administered on 11/28/16t 16:48 ; Admin Dose 1 MG; Start 11/28/16 at 16:45 ALINA WHITE MD Nov 28, 2016 17:26
[2016-11-28 17:44] LABS: BARBITURATES Negative (NEGATIVE); BENZODIAZEPINES Negative (NEGATIVE); CANNABINOIDS Positive (NEGATIVE); COCAINE Negative (NEGATIVE); OPIATES Negative (NEGATIVE)
--- NOTE | 2016-11-28 20:40 | RADRPT ---
PROCEDURE: CT Brain without. CLINICAL INDICATION: Confusion TECHNIQUE: A CT of the brain was performed utilizing axial sections from the skull base through th e vertex without contrast. The scan was reviewed in soft tissue brain and high frequency resolution bone algorithm windows. Images were reviewed on a high-resolution PACS workstation. The exam DLP = 720 mGy-cm. COMPARISON: Same day CT at 04:55 a.m. FINDINGS: The ventricles and sulci are symmetric and normal in size and morphology. There is no acute intracr anial hemorrhage, an acute large territorial infarct, an abnormal extra-axial fluid collection, or a space-occupying intracranial mass. There is no mass effect or midline shift. The smith-white matte r differentiation is intact. The posterior fossa, brainstem, and basal cisterns are unremarkable. There is generalized thickening of the skull with a [id number]-livlcc appearance with slight loss of d istinction of the inner and outer table. There are no acute fractures. The visualized mastoid air c ells and paranasal sinuses are clear. The bilateral globes and orbits are unremarkable. RPTAT: EE IMPRESSION: 1. No acute intracranial abnormality. 2. Abnormal appearance of the calvarium with generalized thickening with a salt and pepper appearan ce. This can be seen with secondary hyperparathyroidism from renal disease - the patient has a hist ory of polycystic kidney disease. .Vera Vidal MD, MD Date Time Electronically viewed and signed by .Vera Vidal MD, on 11/28/2016 20:39 .T/
--- NOTE | 2016-11-28 22:21 | DS ---
Date/Time of Note Date/Time of Note DATE: 11/28/16 TIME: 22:18 Discharge Summary Admission/Discharge Info Admit Date/Time Nov 28, 2016 at 05:15 Discharge Date/Time Nov 28, 2016 at 20:52 Final Diagnosis Nonsustained ventricular tachycardia Accelerated hypertension Shortness of breath Acute encephalopathy End-stage renal disease - on hemodialysis per nephrology Polycystic kidney disease Anemia Medical noncompliance Left AMA Patient Condition: Guarded Hx of Present Illness The patient is a 30-year-old male with a history of end-stage renal disease, HTN and anemia who presented to the ED with shortness of breath after missing dialysis and anxiety. In ER, BP was 178/120 with HR of 114. Cr ~ 11, BUN 55, K+ 4.8 and HCO3 23. CXR showed Lung volumes are slightly reduced compared with prior but no definite acute infiltrate, pleural effusion, or overt congestive heart failure is seen. Head CT neg for cute findings. . Hospital Course Pt was dialyzed with improvement of his shortness of breath. unfortunately, pt has left AMA on day of admission. He has hx of non-compliance. He was no longer anxious at the time he left AMA. Home Meds Active Scripts Tramadol HCl (Tramadol HCl) 50 Mg Tablet, 50 MG PO Q6 Y for PAIN, #20 TAB Prov:ZURDO SUTHERLAND MD 07/06/16 Ondansetron (Ondansetron Odt) 4 Mg Tab.rapdis, 4 MG PO Q6H Y for NAUSEA AND/OR VOMITING, #30 TAB Prov:ZURDO SUTHERLAND MD 07/06/16 Reported Medications Pantoprazole* (Protonix*) 40 Mg Tablet.dr, 40 MG PO Y FOR GASTRIC UPSET 06/24/12 Carvedilol (Coreg) 6.25 Mg Tablet, 6.25 MG PO BID 06/24/12 Metoclopramide* (Reglan*) 10 Mg Tablet, 10 MG PO AC MEALS AND BEDTIME 06/24/12 Pending Labs Laboratory Tests Test 11/28/16 03:30 11/28/16 04:16 11/28/16 08:02 11/28/16 09:32 White Blood Count 6.710^3/ul (4.8-10.8) Red Blood Count 2.9510^6/ul (4.70-6.10) Hemoglobin 8.8g/dl (14.0-18.0) Hematocrit 27.3% (42.0-52.0) Mean Corpuscular Volume 92.5fl (82.0-101.0) Mean Corpuscular Hemoglobin 29.8pg (29.0-33.0) Mean Corpuscular Hemoglobin Concent 32.2g/dl (32.0-37.0) Red Cell Distribution Width 17.7% (11.5-14.5) Platelet Count 84615^3/UL (140-415) Mean Platelet Volume 9.6fl (7.4-10.4) Neutrophils % 71.6% (39.0-77.0) Lymphocytes % 19.5% (15.0-51.0) Monocytes % 5.7% (0.0-11.0) Eosinophils % 2.5% (0.0-7.0) Basophils % 0.3% (0.0-2.0) Nucleated Red Blood Cells % 0.0/100WBC (0.0-0.0) Neutrophils # 4.810^3/ul (1.6-7.5) Lymphocytes # 1.310^3/ul (0.8-2.9) Monocytes # 0.410^3/ul (0.3-0.9) Eosinophils # 0.210^3/ul (0.0-0.5) Basophils # 0.010^3/ul (0.0-0.1) Nucleated Red Blood Cells # 0.010^3/ul (0.0-0.0) Sodium Level 137mmol/L (135-144) Potassium Level 4.8mmol/L (3.5-5.1) Chloride Level 95mmol/L (97-110) Carbon Dioxide Level 23mmol/L (21-31) Anion Gap 24 (8-16) Blood Urea Nitrogen 55mg/dl (7-20) Creatinine 10.87mg/dl (0.61-1.24) Glucose Level 214mg/dl (70-220) Calcium Level 9.2mg/dl (8.4-10.2) Total Bilirubin 0.7mg/dl (0.2-1.3) Direct Bilirubin 0.00mg/dl (0.00-0.20) Indirect Bilirubin 0.7mg/dl (0-1.1) Aspartate Amino Transf (AST/SGOT) 25IU/L (15-46) Alanine Aminotransferase (ALT/SGPT) 29IU/L (13-69) Alkaline Phosphatase 148IU/L (42-121) Troponin I 0.074ng/ml (0.00-0.12) Total Protein 7.5g/dl (6.1-8.1) Albumin 3.7g/dl (3.3-4.9) Globulin 3.80g/dl (1.3-3.2) Albumin/Globulin Ratio 0.97 Lipase 124U/L (23-300) Ammonia 24umol/l (9-30) Bedside Glucose 129mg/dL (70-220) 137mg/dL (70-220) Test 11/28/16 12:15 11/28/16 17:00 11/28/16 17:25 Bedside Glucose 109mg/dL (70-220) 106mg/dL (70-220) Urine Opiates Screen Negative (NEGATIVE) Urine Barbiturates Negative (NEGATIVE) Urine Amphetamines Screen Negative (NEGATIVE) Urine Benzodiazepines Screen Negative (NEGATIVE) Urine Cocaine Screen Negative (NEGATIVE) Urine Cannabinoids Positive (NEGATIVE) CHENTE STEEL MD Nov 28, 2016 22:21
[2016-11-29] MEDS ORDERED: ACCU-CHEK XX SCH (02:00)
== END 2016-11-28 20:52 | disposition left against medical advice (07) | DRG 308 ==
LOC: E/R 02:37 → MS2 05:15 → MS4 09:13
PROVIDERS: ADMIT Internal Medicine; ATTEND Internal Medicine
PROC: 5A1D00Z (ICD-10-PCS; principal; 2016-11-28)
DX: I47.2 Ventricular tachycardia (principal); N18.6 End stage renal disease; G93.40 Encephalopathy, unspecified; I12.0 Hypertensive chronic kidney disease with stage 5 chronic kidney disease or end stage renal disease; G89.29 Other chronic pain; D64.9 Anemia, unspecified; E11.9 Type 2 diabetes mellitus without complications; Z99.2 Dependence on renal dialysis; Z91.15 Patient's noncompliance with renal dialysis
CPT/HCPCS: 36415; 70450; 71010; 80053; 80307; 82140; 82962; 83690; 84484; 85025; 90935; 93005; 96374; J0360; J1644; J1815; J2060

== ENCOUNTER 2017-05-20 05:16 | Inpatient (IN) | payer BC ==
[2017-05-20] VITALS (12 sets, daily range): BP systolic 118–129; BP diastolic 76–87; PULSE 74–96; RESP 18; TEMP 97.5; Ht 177.8 cm; Wt 82.0 kg
[~2017-05-20] VITALS: Ht 177.8 cm; Wt 82.0 kg
[2017-05-20] MEDS ORDERED: ONDANSETRON 4 MG INJ IV STA ×2 (05:26→06:44)
[2017-05-20] MEDS ORDERED: morphine 2 MG INJ IV ONE (05:30)
--- NOTE | 2017-05-20 05:50 | RADRPT ---
PROCEDURE: XR Chest. CLINICAL INDICATION: Shortness of breath TECHNIQUE: An AP view of the chest was obtained. COMPARISON: Chest x-ray dated 11/28/2016 FINDINGS: There is a right chest Perma-Cath with tip in the cavoatrial junction. There are diffuse bilateral interstitial opacities with small bilateral pleural effusions. No pneumo thorax is seen. The cardiomediastinal silhouette is moderately enlarged. The osseous structures ar e unremarkable. IMPRESSION: 1. Moderate cardiomegaly with interstitial edema, mildly increased when compared to the prior exami nation. 2. Right chest Perma-Cath with tip near the cavoatrial junction. RPTAT: HH .Selin Kearney MD, MD Date Time Electronically viewed and signed by .Selin Kearney MD, MD on 05/20/2017 05:49 .G/
[2017-05-20 06:19] LABS: BASOPHIL # 0.1 10^3/ul (0.0-0.1); BASOPHILS % 0.8 % (0.0-2.0); EOSINOPHILS # 0.4 10^3/ul (0.0-0.5); EOSINOPHILS % 6.2 % (0.0-7.0); HEMATOCRIT 30.8 % (42.0-52.0); HEMOGLOBIN 10.2 g/dl (14.0-18.0); LYMPHOCYTES # 1.2 10^3/ul (0.8-2.9); LYMPHOCYTES % 18.8 % (15.0-51.0); MEAN CORPUSCULAR HEMOGLOBIN 32.6 pg (29.0-33.0); MEAN CORPUSCULAR HGB CONC 33.1 g/dl (32.0-37.0); MEAN CORPUSCULAR VOLUME 98.4 fl (82.0-101.0); MEAN PLATELET VOLUME 9.8 fl (7.4-10.4); MONOCYTE # 0.4 10^3/ul (0.3-0.9); MONOCYTES % 6.9 % (0.0-11.0); NEUTROPHIL # 4.1 10^3/ul (1.6-7.5); NEUTROPHILS % 67.1 % (39.0-77.0); PLATELET COUNT 221 10^3/UL (140-415); RED BLOOD COUNT 3.13 10^6/ul (4.70-6.10); RED CELL DISTRIBUTION WIDTH 14.8 % (11.5-14.5); WHITE BLOOD COUNT 6.1 10^3/ul (4.8-10.8)
[2017-05-20] MEDS ORDERED: METO-448 PO (06:27)
[2017-05-20] MEDS ORDERED: HYDR-902 PO (06:27)
[2017-05-20] MEDS ORDERED: MULTI PO (06:27)
[2017-05-20] MEDS ORDERED: SEVE800T10 PO (06:27)
[2017-05-20] MEDS ORDERED: CARV6.2579 PO (06:27)
[2017-05-20] MEDS ORDERED: NIFE30TA60 PO (06:27)
[2017-05-20] MEDS ORDERED: CNC30T PO (06:27)
[2017-05-20 06:28] LABS: INR 1.16; PROTIME 14.8 Sec (12.2-14.2); PT RATIO 1.2
[2017-05-20 06:29] LABS: PARTIAL THROMBOPLASTIN TIME 58.8 Sec (25.0-35.0)
[2017-05-20] MEDS ORDERED: FUROSEMIDE 40 MG INJ IV ONE (06:30)
[2017-05-20 06:37] LABS: ALBUMIN 4.2 g/dl (3.3-4.9); ALBUMIN/GLOBULIN RATIO 0.93; BILIRUBIN,INDIRECT 0.6 mg/dl (0-1.1); BILIRUBIN,TOTAL 0.6 mg/dl (0.2-1.3); CALCIUM 9.3 mg/dl (8.4-10.2); CREATININE 7.22 mg/dl (0.61-1.24); POTASSIUM 4.7 mmol/L (3.5-5.1); TOTAL PROTEIN 8.7 g/dl (6.1-8.1)
[2017-05-20] MEDS ORDERED: morphine 4 MG/ML VIAL IV STA (06:44)
[2017-05-20 06:56] LABS: TROPONIN-I 0.051 ng/ml (0.00-0.12)
[2017-05-20 07:16] LABS: MAGNESIUM 2.2 mg/dl (1.7-2.5); PHOSPHORUS 5.4 mg/dl (2.5-4.9)
[2017-05-20] MEDS ORDERED: ONDANSETRON 4 MG INJ IV PRN (07:30)
[2017-05-20] MEDS ORDERED: ACETAMINOPHEN 325 MG TAB PO PRN ×2 (07:30→10:30)
[2017-05-20] MEDS ORDERED: LABETALOL HCL 20MG INJ IV ONE (08:00)
--- NOTE | 2017-05-20 08:01 | ERA ---
ER Documentation Chief Complaint Date/Time DATE: 05/20/17 TIME: 07:56 Chief Complaint SOB HPI Patient is a 31-year-old male with hypertension, diabetes, and dialysis who presents with shortness of breath. The patient says that his shortness of breath started at dialysis. He got 2 hours of dialysis but usually gets 4 hours. He has had no fevers and no cough. Upon review of old medical records this is the patient's ninth visit to the ER since 2011. Review of the emergency department information exchange system shows visits to 3 separate emergency departments. His primary doctor is Dr. Jag Valdovinos. ROS All systems reviewed and are negative except as per history of present illness. Medications Home Meds Active Scripts Tramadol HCl (Tramadol HCl) 50 Mg Tablet, 50 MG PO Q6 Y for PAIN, #20 TAB Prov:ZURDO SUTHERLAND MD 07/06/16 Ondansetron (Ondansetron Odt) 4 Mg Tab.rapdis, 4 MG PO Q6H Y for NAUSEA AND/OR VOMITING, #30 TAB Prov:ZURDO SUTHERLAND MD 07/06/16 Reported Medications Multivitamins* (Theragran*) 1 Tab Tab, 1 TAB PO DAILY, TAB 05/20/17 Cinacalcet* (Sensipar*) 30 Mg Tab, 30 MG PO QPM, TAB 05/20/17 Metoprolol Tartrate* (Lopressor*) 25 Mg Tab, 25 MG PO BID, #60 TAB 05/20/17 Sevelamer Hcl* (Renagel*) 800 Mg Tablet, 800 MG PO WITH MEALS, TAB 05/20/17 Hydrocodone/Acetaminophen ([place] 10-325 Tablet) 1 Each Tablet, 1 EACH PO, TAB 05/20/17 Nifedipine* (Nifedipine ER*) 30 Mg Tablet.sa, 30 MG PO DAILY, TAB.SA 05/20/17 Carvedilol* (Carvedilol*) 6.25 Mg Tablet, 6.25 MG PO WITH BREAKFAST DINNE, #60 TAB 05/20/17 Pantoprazole* (Protonix*) 40 Mg Tablet.dr, 40 MG PO Y FOR GASTRIC UPSET 06/24/12 Carvedilol (Coreg) 6.25 Mg Tablet, 6.25 MG PO BID 06/24/12 Metoclopramide* (Reglan*) 10 Mg Tablet, 10 MG PO AC MEALS AND BEDTIME 06/24/12 Allergies Allergies: Coded Allergies: No Known Drug Allergies (Unverified Allergy, Unknown, 05/20/17) PMhx/Soc History of Surgery: Yes Anesthesia Reaction: No Hx Neurological Disorder: No Hx Respiratory Disorders: No Hx Cardiac Disorders: No Hx Miscellaneous Medical Probl: No Hx Alcohol Use: No Hx Substance Use: Yes (MARIJUANA) Hx Tobacco Use: No Smoking Status: Smoker,current status unk FmHx Family History: No diabetes Physical Exam Vitals Vital Signs Date Time Temp Pulse Resp B/P Pulse Ox O2 Delivery O2 Flow Rate FiO2 05/20/17 07:40 102 18 142/100 05/20/17 05:42 Nasal Cannula 2 05/20/17 05:42 103 25 156/116 96 Nasal Cannula 05/20/17 05:40 2.0 28 05/20/17 05:25 98.7 111 30 144/128 95 Physical Exam Const: Moderate distress Head: Atraumatic Eyes: Normal Conjunctiva ENT: Normal External Ears, Nose and Mouth. Neck: Full range of motion..~ No meningismus. Resp: Decreased breath sounds bilaterally Cardio: Regular rate and rhythm, no murmurs Abd: Soft, non tender, non distended. Normal bowel sounds Skin: No petechiae or rashes Back: No midline or flank tenderness Ext: No cyanosis, or edema Neur: Awake and alert Psych: Normal Mood and Affect Result Diagram: 05/20/17 0530 05/20/17 0530 Results 24 hrs Laboratory Tests Test 05/20/17 05:30 White Blood Count 6.110^3/ul Red Blood Count 3.1310^6/ul Hemoglobin 10.2g/dl Hematocrit 30.8% Mean Corpuscular Volume 98.4fl Mean Corpuscular Hemoglobin 32.6pg Mean Corpuscular Hemoglobin Concent 33.1g/dl Red Cell Distribution Width 14.8% Platelet Count 95917^3/UL Mean Platelet Volume 9.8fl Neutrophils % 67.1% Lymphocytes % 18.8% Monocytes % 6.9% Eosinophils % 6.2% Basophils % 0.8% Nucleated Red Blood Cells % 0.0/100WBC Neutrophils # 4.110^3/ul Lymphocytes # 1.210^3/ul Monocytes # 0.410^3/ul Eosinophils # 0.410^3/ul Basophils # 0.110^3/ul Nucleated Red Blood Cells # 0.010^3/ul Prothrombin Time 14.8Sec Prothrombin Time Ratio 1.2 INR International Normalized Ratio 1.16 Activated Partial Thromboplast Time 58.8Sec Sodium Level 141mmol/L Potassium Level 4.7mmol/L Chloride Level 94mmol/L Carbon Dioxide Level 33mmol/L Anion Gap 19 Blood Urea Nitrogen 44mg/dl Creatinine 7.22mg/dl Glucose Level 146mg/dl Calcium Level 9.3mg/dl Phosphorus Level 5.4mg/dl Magnesium Level 2.2mg/dl Total Bilirubin 0.6mg/dl Direct Bilirubin 0.00mg/dl Indirect Bilirubin 0.6mg/dl Aspartate Amino Transf (AST/SGOT) 19IU/L Alanine Aminotransferase (ALT/SGPT) 23IU/L Alkaline Phosphatase 199IU/L Troponin I 0.051ng/ml Total Protein 8.7g/dl Albumin 4.2g/dl Globulin 4.50g/dl Albumin/Globulin Ratio 0.93 Lipase 313U/L Current Medications Medications (Trade) Dose Ordered Sig/Lia Route PRN Reason Start Time Stop Time Status Last Admin Dose Admin Morphine Sulfate (morphine) 2 mg ONCE ONCE IV 05/20/17 05:30 05/20/17 05:31 DC 05/20/17 05:41 Ondansetron HCl (Zofran Inj) 4 mg ONCE STAT IV 05/20/17 05:26 05/20/17 05:29 DC 05/20/17 05:41 Furosemide (Lasix) 40 mg ONCE ONCE IV 05/20/17 06:30 05/20/17 06:31 DC 05/20/17 06:30 Morphine Sulfate (morphine) 4 mg ONCE STAT IV 05/20/17 06:44 05/20/17 06:45 DC 05/20/17 06:47 Ondansetron HCl (Zofran Inj) 4 mg ONCE STAT IV 05/20/17 06:44 05/20/17 06:45 DC 05/20/17 07:15 Ondansetron HCl (Zofran Inj) 4 mg ER BRIDGE PRN IV NAUSEA AND/OR VOMITING 05/20/17 07:30 05/21/17 07:29 Acetaminophen (Tylenol Tab) 650 mg ER BRIDGE PRN PO MILD PAIN/FEVER 05/20/17 07:30 05/21/17 07:29 Labetalol HCl (Labetalol) 20 mg ONCE ONCE IV 05/20/17 08:00 05/20/17 08:01 05/20/17 07:53 Procedures/MDM EKG read by me: Rate/Rhythm: Regular rate and rhythm at a rate of 98 Intervals: Normal Impression: No evidence of ischemia or arrhythmia Chest x-ray shows cardiomegaly and pulmonary edema per radiology. Patient is a 31-year-old male with hypertension, diabetes, and dialysis who presents with shortness of breath. He did not get his full dialysis today because of the shortness of breath. He appears to have fluid overload. The patient has no sign of pneumonia or pneumothorax at this time. I doubt pulmonary embolism as well. The patient will be admitted to the care of Dr. Taylor from the panel team as he has been admitted to the panel team previously. The patient will likely need dialysis while he is admitted. The patient says that he does make urine so a dose of Lasix 40 mg IV was given. His blood pressure was elevated as well and he was given labetalol 20 mg IV to control the blood pressure. Critical Care: Time: 35 minutes excluding all billable procedures. Treatments/Evaluations: Close monitoring and treatment of unstable vital signs, cardiorespiratory, and neurologic status, while maintaining tight balance of fluid, respiratory, and cardiac interventions. Departure Diagnosis: Primary Impression: Fluid overload Qualified Code: E87.70 - Hypervolemia, unspecified hypervolemia type Additional Impressions: Shortness of breath Hypertension Qualified Code: I10 - Essential hypertension Condition: ZURDO Fernando MD May 20, 2017 08:01
[2017-05-20] MEDS ORDERED: HYDROmorphONE 1 MG/ML SYG IV STA (08:25)
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
[2017-05-20] MEDS ORDERED: NACL 0.9% 3 ML SYG IV SCH (10:30)
[2017-05-20] MEDS: ONDANSETRON 4 MG INJ IV PRN ×2 (13:31→18:23)
[2017-05-20] MEDS: HEPARIN 5,000 UNIT/0.5 ML VIAL SC SCH ×2 (14:00→22:00)
[2017-05-20] MEDS ORDERED: GLUCAGON 1 MG INJ IM PRN (15:00)
[2017-05-20] MEDS ORDERED: GLUCOSE GEL 15 GRAM TUBE BUCCAL PRN (15:00)
[2017-05-20] MEDS ORDERED: DEXTROSE 50% 50 ML SYRINGE IV PRN ×2 (15:00)
[2017-05-20] MEDS ORDERED: GLUCOSE GEL 15 GRAM TUBE PO PRN ×2 (15:00)
[2017-05-20] MEDS: INSULIN ASPART [NOVOLOG] 3 ML PEN SC SCH ×2 (17:11→20:53)
[2017-05-20] MEDS: SEVELAMER 800 MG TAB PO SCH (17:55)
[2017-05-20] MEDS: HYDROCODONE/APAP (5/325) TAB PO PRN (18:23)
[2017-05-20] MEDS: morphine 4 MG/ML VIAL IV STA (21:00)
[2017-05-20] MEDS: DEXTROSE 5%-0.45% NACL 1,000 ML IV SCH (23:19)
[2017-05-21] VITALS (17 sets, daily range): BP systolic 126–162; BP diastolic 50–104; PULSE 83–100; RESP 18–20
[2017-05-21] MEDS ORDERED: METOCLOPRAMIDE 10 MG INJ IV SCH
--- NOTE | 2017-05-21 01:42 | CONS ---
DATE OF ADMISSION: 05/20/2017 DATE OF CONSULTATION: 05/20/2017 REASON FOR CONSULT: End-stage renal disease. PHYSICIAN REQUESTING CONSULT: Yanick Taylor MD. HISTORY OF PRESENT ILLNESS: This is a 31-year-old male with a past medical history of end-stage renal disease on dialysis Tuesday, Tuesday, Tuesday. Access is Perma-Cath. History of hypertension, history of anemia of chronic disease, history of medical noncompliance, who presents to [facility] with complaint of shortness of breath. The patient apparently was at a [facility], where he states he was having severe shortness of breath. The patient is on dialysis but was unable to complete it. As a result, paramedics were called. The patient was taken to the emergency room. Upon arrival, the patient had a chest x-ray that showed findings of interstitial edema, increased from prior admission. The patient, in the emergency room, was given morphine, Zofran, and labetalol for hypertension. PAST MEDICAL HISTORY: As stated above. History of end-stage renal disease, history of hypertension, medical noncompliance, GERD, history of diabetes. PAST SURGICAL HISTORY: Status post Perma-Cath placement. ALLERGIES: NO KNOWN DRUG ALLERGIES. FAMILY HISTORY: Noncontributory. SOCIAL HISTORY: Unknown. REVIEW OF SYSTEMS: A 14-point review of systems conducted. Pertinent positives stated in HPI, otherwise negative. PHYSICAL EXAMINATION: VITAL SIGNS: Blood pressure is 170/100, respirations 18, pulse 110, temperature 98.6. HEENT: Normocephalic. Pupils reactive to light. NECK: Supple. HEART: Regular rate. LUNGS: Show diminished breath sounds at the base. ABDOMEN: Soft, nontender to palpation. No rebound or guarding. EXTREMITIES: Negative for clubbing, cyanosis. No edema. DERMATOLOGIC: Clean, no rashes. MUSCULOSKELETAL: No joint effusions. NEUROLOGIC: No change in exam. MEDICATION: Reviewed. LABORATORY DATA: Shows white count 6.1, hemoglobin 10.2, hematocrit 30.8, platelet count 221,000. Sodium is 141, potassium . IMPRESSION AND PLAN: 1. End-stage renal disease. Patient on dialysis Tuesday, Tuesday, and Tuesday. . 2. Acute hypoxemia with respiratory failure. Etiology is likely secondary to edema. Other etiologies need to be ruled out. Will anticipate ultrafiltration dialysis. Will try 2-3 L. Continue supplemental oxygen. Continue to monitor closely. 3. Hypertension. Etiology in part due to increased intravascular volume. Anticipate ultrafiltration dialysis. Continue blood pressure regimen. 4. Anemia. Monitor hemoglobin and hematocrit levels and give Epogen as needed. 5. Mineral bone disorder. Monitor calcium and phosphorus levels. Thank you for this very interesting consult. It will be a pleasure to follow the patient with you throughout the hospital course. Dictated By: Dedrick Andino DO /esther/aby /Document#: [id number]
[2017-05-21] MEDS: ACCU-CHEK XX SCH (02:00)
[2017-05-21] MEDS ORDERED: ACCU-CHEK XX SCH (02:00)
[2017-05-21] MEDS: morphine 4 MG/ML VIAL IV STA (02:20)
[2017-05-21] MEDS: CINACALCET 30 MG TAB PO SCH ×2 (02:20→21:43)
[2017-05-21] MEDS: HYDROCODONE/APAP (5/325) TAB PO PRN (02:34)
[2017-05-21] MEDS: HEPARIN 5,000 UNIT/0.5 ML VIAL SC SCH ×3 (06:00→21:48)
[2017-05-21] MEDS: METOCLOPRAMIDE 10 MG INJ IV SCH ×3 (06:21→18:00)
[2017-05-21] MEDS ORDERED: morphine 2 MG INJ IV ONE (06:30)
[2017-05-21] MEDS: INSULIN ASPART [NOVOLOG] 3 ML PEN SC SCH ×4 (07:39→21:00)
[2017-05-21] MEDS ORDERED: INFLUENZA VIRUS VACCINE 0.5 ML SYG IM* ONE (09:00)
--- NOTE | 2017-05-21 09:32 | PN ---
DATE: 05/21/2017 SUBJECTIVE DATA: The patient is stable. Had hemodialysis yesterday, tolerated well. OBJECTIVE DATA: VITAL SIGNS: Blood pressure 131/96, respirations 20, pulse 84, temperature 97.6. HEENT: Head is normocephalic. NECK: Supple. HEART: Regular rate. LUNGS: Show diminished breath sounds at the base. ABDOMEN: Soft, nontender to palpation. No rebound or guarding. EXTREMITIES: Negative for clubbing, cyanosis. No edema. DERMATOLOGIC: Clean. No rashes. MUSCULOSKELETAL: No joint effusion. NEUROLOGIC: No change in exam. MEDICATIONS: Reviewed. LABORATORY AND DIAGNOSTIC DATA: Pending. ASSESSMENT AND PLAN: 1. End-stage renal disease on dialysis Tuesday, Tuesday, Tuesday. The patient had hemodialysis yesterday, tolerated well with 3 L removed. 2. Acute hypoxemic respiratory failure secondary to congestive heart failure. The patient had 3 L removed. Continue to monitor. Continue supplemental oxygen. 3. Hypertension, improving. Continue current blood pressure regimen. Continue dialysis. 4. Anemia. Monitor H and H levels. We will give Epogen as needed. 5. Mineral bone disorder. Monitor calcium and phosphorus levels. Dictated By: Dedrick Andino DO /esther/vielka /Document#: [id number]
[2017-05-21] MEDS: MULTIVITAMINS THERAPEUTIC TAB PO SCH (10:20)
[2017-05-21] MEDS: SEVELAMER 800 MG TAB PO SCH ×3 (10:20→17:55)
[2017-05-21] MEDS: NIFEdipine (XL) 30 MG TAB PO SCH (10:22)
--- NOTE | 2017-05-21 11:21 | PN ---
Date/Time of Note Date/Time of Note DATE: 05/21/17 TIME: 11:19 Assessment/Plan VTE Prophylaxis VTE Prophylaxis Intervention: heparin Lines/Catheters IV C[facility]ter Type (from [facility]): Peripheral IV Urinary Cath still in place: No Assessment/Plan Chief Complaint/Hosp Course 1. Acute hypoxic respiratory failure. Most probably secondary to nephrogenic pulmonary edema. Fluid status post hemodialysis. Repeat chest x-ray pending. 2. End-stage renal disease on hemodialysis. Nephrology following the patient. 3. Essential hypertension. Continue antihypertensives. 4. Anemia. Normocytic, normochromic. Most probably anemia of chronic kidney disease. Will monitor H&H closely. 5. Type 2 DM. Not on any treatment at home. Hemoglobin A1C within normal limits. Continue the patient on sliding scale insulin. 6. Possible underlying cannabinoid hyperemesis syndrome. Patient claims that he uses marijuana at home for his abdominal pain. Patient will be continued on prokinetics and as needed antiemetics. 7. Fluids, electrolytes, and nutrition. Renal diet. 8. DVT prophylaxis. Subcutaneous heparin. 9. Plan. Continue pain control. Continue antiemetics and prokinetics. Await repeat chest x-ray. Case discussed with Dr. Tanner. Problems: Subjective 24 Hr Interval Summary Free Text/Dictation The patient was complaining of abdominal pain. He had multiple episodes of vomiting. Denies any dyspnea. Refused AM blood draws. Exam/Review of Systems Vital Signs Vitals Vital Signs Date Time Temp Pulse Resp B/P Pulse Ox O2 Delivery O2 Flow Rate FiO2 05/21/17 08:48 83 05/21/17 05:17 97.6 20 131/97 96 05/20/17 05:42 Nasal Cannula 2 05/20/17 05:40 28 Intake and Output 05/20/17 05/20/17 05/21/17 15:00 23:00 07:00 Intake Total 300 ml Output Total 3300 ml Balance -3000 ml Exam General: Adequately build 31 year-old male lying in bed in no apparent distress. HEENT: Normocephalic, atraumatic. Eyes: Anicteric sclerae, conjunctivae clear. ENT: Nasal septum midline, oral mucosa is dry. Neck supple, no JVD noticed. Respiratory: Bilaterally diminished breath sounds. No use of accessory muscles of respiration. No adventitious breath sounds. Cardiovascular: S1, S2 heard. Grade II/ systolic murmur. Abdomen: Soft, nontender, and nondistended. Bowel sounds positive in all 4 quadrants. Genitourinary: Deferred. Extremities: No cyanosis, no clubbing. Bilateral amputation of al the toes. Neurologic: Cranial nerves II through XII grossly intact. The patient is awake, alert, and oriented. Results Result Diagram: 05/20/17 0530 05/20/17 0530 Results 24 hrs Laboratory Tests Test 05/20/17 17:09 05/20/17 20:12 05/20/17 22:50 05/20/17 23:39 Bedside Glucose 138 85 133 Lactic Acid Level 1.9 Test 05/21/17 04:02 05/21/17 07:16 Bedside Glucose 105 113 Medications Medications Current Medications Ondansetron HCl (Zofran Inj) 4 mg Q6H PRN IV NAUSEA AND/OR VOMITING Last administered on 05/20/17 18:23; Admin Dose 4 MG; Start 05/20/17 at 10:30 Acetaminophen (Tylenol Tab) 650 mg Q6H PRN PO PAIN LEVEL 1-3 OR FEVER; Start at 10:30 Acetaminophen/ Hydrocodone Bitart ([place] (5/325)) 1 tab Q6H PRN PO MODERATE PAIN LEVEL 4-6 Last administered on 05/21/17 02:34; Admin Dose 1 TAB; Start at 10:30 Heparin Sodium (Porcine) (Heparin (5000 Units/0.5 ml)) 5,000 unit Q8 SC ; Start 05/20/17 at 14:00 Carvedilol (Coreg) 6.25 mg BID PO Last administered on 05/21/17 10:23; Admin Dose 6.25 MG; Start 05/20/17 at 21:00 Cinacalcet (Sensipar) 30 mg QPM PO Last administered on 05/21/17 02:20; Admin Dose 30 MG; Start 05/20/17 at 21:00 Multivitamins Therapeutic (Theragran) 1 tab DAILY PO Last administered on 10:20; Admin Dose 1 TAB; Start 05/21/17 at 09:00 Nifedipine (Procardia Xl) 30 mg DAILY PO Last administered on 05/21/17 10:22; Admin Dose 30 MG; Start 05/21/17 at 09:00 Diagnostic Test (Pha) (Accu-Chek) 1 ea 02 XX ; Start 05/21/17 at 02:00 Miscellaneous Information 1 ea NOTE XX ; Start 05/20/17 at 15:00 Glucose (Glutose) 15 gm Q15M PRN PO DECREASED GLUCOSE; Start 05/20/17 at 15:00 Glucose (Glutose) 22.5 gm Q15M PRN PO DECREASED GLUCOSE; Start 05/20/17 at 15: 00 Dextrose (D50w Syringe) 25 ml Q15M PRN IV DECREASED GLUCOSE Last administered on 05/20/17 23:17; Admin Dose 25 ML; Start 05/20/17 at 15:00 Dextrose (D50w Syringe) 50 ml Q15M PRN IV DECREASED GLUCOSE; Start 05/20/17 at 15:00 Glucagon (Glucagen) 1 mg Q15M PRN IM DECREASED GLUCOSE; Start 05/20/17 at 15:00 Glucose 15 gm 15 gm Q15M PRN BUCCAL DECREASED GLUCOSE; Start 05/20/17 at 15:00 Dextrose/Sodium Chloride (D5-1/2ns) 1,000 ml @ 40 mls/hr Q24H IV Last administered on 05/20/17 23:19; Admin Dose 40 MLS/HR; Start 05/20/17 at 23:00 Metoclopramide HCl (Reglan) 10 mg Q6 IV Last administered on 05/21/17 06:21; Admin Dose 10 MG; Start 05/21/17 at 06:00 Docusate Sodium (Colace) 100 mg BID PO ; Start 05/22/17 at 09:00 XAVIER PHIPPS NP May 21, 2017 11:21
[2017-05-21] MEDS: DOCUSATE SODIUM 100 MG CAP PO SCH ×2 (12:15→21:43)
[2017-05-21] MEDS: morphine 2 MG INJ IV PRN (14:30)
[2017-05-21 15:27] LABS: BASOPHIL # 0.1 10^3/ul (0.0-0.1); BASOPHILS % 1.3 % (0.0-2.0); EOSINOPHILS # 0.3 10^3/ul (0.0-0.5); EOSINOPHILS % 4.5 % (0.0-7.0); HEMATOCRIT 35.1 % (42.0-52.0); HEMOGLOBIN 11.3 g/dl (14.0-18.0); LYMPHOCYTES # 1.4 10^3/ul (0.8-2.9); LYMPHOCYTES % 25.2 % (15.0-51.0); MEAN CORPUSCULAR HEMOGLOBIN 31.2 pg (29.0-33.0); MEAN CORPUSCULAR HGB CONC 32.2 g/dl (32.0-37.0); MEAN PLATELET VOLUME 9.8 fl (7.4-10.4); MONOCYTE # 0.4 10^3/ul (0.3-0.9); MONOCYTES % 7.4 % (0.0-11.0); NEUTROPHIL # 3.4 10^3/ul (1.6-7.5); NEUTROPHILS % 61.4 % (39.0-77.0); NUCLEATED RED BLOOD CELLS% 0.4 /100WBC (0.0-0.0); PLATELET COUNT 261 10^3/UL (140-415); RED BLOOD COUNT 3.62 10^6/ul (4.70-6.10); WHITE BLOOD COUNT 5.5 10^3/ul (4.8-10.8)
[2017-05-21] MEDS ORDERED: LORAZEPAM 2 MG INJ IV PRN (15:30)
--- NOTE | 2017-05-21 15:41 | RADRPT ---
PROCEDURE: XR Chest 1 view. CLINICAL INDICATION: Shortness of breath. TECHNIQUE: AP views of the chest was obtained. COMPARISON: Yesterday FINDINGS: The heart is large. Calcified atherosclerosis is noted in the aorta. Right-sided dialysis catheter is stable. Central pulmonary vascular congestion and interstitial prominence in both lungs is unchan ged. Atelectasis versus minimal infiltrates are seen in the left mid lung. No pneumothorax as visual ized. The osseous structures are unchanged. IMPRESSION: Cardiomegaly with calcified atherosclerosis in the aorta. Central pulmonary vascular congestion and interstitial prominence in both lungs. Stable atelectasis versus minimal infiltrates in the left mid lung. RPTAT: AA .Oscar Nuñez MD, Date Time Electronically viewed and signed by .Oscar Nuñez MD, on 05/21/2017 15:41 .P/
[2017-05-21 15:56] LABS: ALBUMIN 4.5 g/dl (3.3-4.9); ALBUMIN/GLOBULIN RATIO 1.02; BILIRUBIN,INDIRECT 1.4 mg/dl (0-1.1); BILIRUBIN,TOTAL 1.4 mg/dl (0.2-1.3); CALCIUM 9.1 mg/dl (8.4-10.2); CREATININE 8.02 mg/dl (0.61-1.24); TOTAL PROTEIN 8.9 g/dl (6.1-8.1)
[2017-05-21 15:57] LABS: CHOL/HDL RATIO 3.4 RATIO; MAGNESIUM 2.2 mg/dl (1.7-2.5); PHOSPHORUS 6.6 mg/dl (2.5-4.9)
[2017-05-21 16:00] LABS: POTASSIUM 6.5 mmol/L (3.5-5.1)
[2017-05-21] MEDS: DEXTROSE 5%-0.45% NACL 1,000 ML IV SCH (23:00)
[2017-05-22] VITALS (7 sets, daily range): BP systolic 120–136; BP diastolic 79–97; PULSE 80–98; RESP 18–20
[2017-05-22] MEDS: ACCU-CHEK XX SCH (00:34)
[2017-05-22] MEDS: morphine 2 MG INJ IV PRN ×2 (03:52→08:37)
[2017-05-22] MEDS: HEPARIN 5,000 UNIT/0.5 ML VIAL SC SCH ×2 (06:00→11:50)
[2017-05-22] MEDS: METOCLOPRAMIDE 10 MG INJ IV SCH ×3 (06:00→11:50)
[2017-05-22] MEDS: INSULIN ASPART [NOVOLOG] 3 ML PEN SC SCH ×2 (07:55→11:50)
[2017-05-22] MEDS: SEVELAMER 800 MG TAB PO SCH ×2 (08:13→11:50)
[2017-05-22] MEDS: MULTIVITAMINS THERAPEUTIC TAB PO SCH (08:13)
[2017-05-22] MEDS: DOCUSATE SODIUM 100 MG CAP PO SCH (08:13)
[2017-05-22] MEDS: NIFEdipine (XL) 30 MG TAB PO SCH (08:14)
[2017-05-22 08:32] LABS: BASOPHIL # 0.1 10^3/ul (0.0-0.1); BASOPHILS % 1.2 % (0.0-2.0); EOSINOPHILS # 0.3 10^3/ul (0.0-0.5); EOSINOPHILS % 4.8 % (0.0-7.0); HEMATOCRIT 30.7 % (42.0-52.0); LYMPHOCYTES # 1.3 10^3/ul (0.8-2.9); LYMPHOCYTES % 25.6 % (15.0-51.0); MEAN CORPUSCULAR HEMOGLOBIN 31.1 pg (29.0-33.0); MEAN CORPUSCULAR HGB CONC 32.6 g/dl (32.0-37.0); MEAN CORPUSCULAR VOLUME 95.3 fl (82.0-101.0); MEAN PLATELET VOLUME 10.2 fl (7.4-10.4); MONOCYTE # 0.5 10^3/ul (0.3-0.9); MONOCYTES % 9.4 % (0.0-11.0); NEUTROPHIL # 3.1 10^3/ul (1.6-7.5); NEUTROPHILS % 58.8 % (39.0-77.0); PLATELET COUNT 209 10^3/UL (140-415); RED BLOOD COUNT 3.22 10^6/ul (4.70-6.10); RED CELL DISTRIBUTION WIDTH 14.6 % (11.5-14.5); WHITE BLOOD COUNT 5.2 10^3/ul (4.8-10.8)
[2017-05-22 08:45] LABS: CREATININE 7.74 mg/dl (0.61-1.24); MAGNESIUM 2.1 mg/dl (1.7-2.5); PHOSPHORUS 5.5 mg/dl (2.5-4.9); POTASSIUM 4.9 mmol/L (3.5-5.1)
[2017-05-22] MEDS ORDERED: DOCUSATE SODIUM 100 MG CAP PO SCH (09:00)
--- NOTE | 2017-05-22 09:04 | PN ---
DATE: 05/22/2017 SUBJECTIVE DATA: The patient had hemodialysis yesterday for hypokalemia. Tolerated well. No other events noted. OBJECTIVE DATA: VITAL SIGNS: Blood pressure is 136/96, respirations 20, pulse 94, temperature 98.3. HEENT: Head is normocephalic. NECK: Supple. HEART: Regular rate. LUNGS: Diminished breath sounds at the base. ABDOMEN: Soft, nontender to palpation. No rebound or guarding. EXTREMITIES: Negative for clubbing, cyanosis. No edema. DERMATOLOGIC: No rashes. MUSCULOSKELETAL: No joint effusion. NEUROLOGIC: Unchanged exam. MEDICATIONS: Reviewed. LABORATORY DATA: Currently pending. ASSESSMENT AND PLAN: 1. End-stage renal disease. The patient had hemodialysis yesterday, tolerated well. We will follow up renal panel today. 2. Hyperkalemia. The patient had dialysis yesterday and 2K potassium bath. We will follow up potassium renal panel this morning. If patient remains hypokalemic, the patient may require to have a catheter exchange. 3. Hypoxic respiratory failure, secondary to congestive heart failure, improving. Continue medical management. 4. Hypertension. Continue current blood pressure regimen. 5. Anemia. Monitor H and H levels. We will give Epogen as needed. 6. Mineral bone disorder. Dictated By: Dedrick Andino DO /esther/carole /Document#: [id number]
--- NOTE | 2017-05-22 12:34 | PDOCDIS ---
Discharge Instructions DIAGNOSIS Discharge Diagnosis Nephrogenic pulmonary edema. CONDITION Patient Condition: Stable HOME CARE INSTRUCTIONS: Special Diet: Renal OTHER ORDERS: Other Orders: 1. Take a renal diet. 2. Resume home medications 3. Follow-up with your dialysis clinic as scheduled. 4. Follow-up with your primary care physician in 1 week. XAVIER PHIPPS NP May 22, 2017 12:34
--- NOTE | 2017-05-22 15:12 | DS ---
Date/Time of Note Date/Time of Note DATE: 05/22/17 TIME: 15:08 Discharge Summary Admission/Discharge Info Admit Date/Time May 20, 2017 at 07:28 Discharge Date/Time May 22, 2017 at 12:45 Discharge Diagnosis 1. Acute hypoxic respiratory failure from nephrogenic pulmonary edema. 2. End-stage renal disease on hemodialysis. 3. Essential hypertension. 4. Normocytic, normochromic anemia. 5. Type 2 DM. Nephrogenic pulmonary edema. 6. Marijuana use. 7. Probable gastroparesis. Patient Condition: Stable Consults 1. Dedrick Andino DO, Nephrology. Procedures CXR IMPRESSION: Cardiomegaly with calcified atherosclerosis in the aorta. Central pulmonary vascular congestion and interstitial prominence in both lungs. Stable atelectasis versus minimal infiltrates in the left mid lung. Hx of Present Illness Reason for admission: Shortness of breath. Consultants 1. Dedrick Andino DO, Nephrology. This is a 31-year-old -[place] male with a past medical history of end- stage renal disease on hemodialysis, essential hypertension, DM2, anemia of chronic kidney disease, and noncompliance with medications who came to the emergency room with chief complaint of dyspnea. The patient verbalized that he has been getting his hemodialysis today at [facility]. In the middle of the dialysis, he became a severely short of breath. Hence he was transferred to the emergency room by paramedics. Patient denied any chest pain. The patient was complaining of nausea. Patient denied any vomiting. The patient denied any fevers or chills. The patient verbalized that he has been compliant with his home medications. In the emergency room, the patient was noted a BUN and creatinine of 44 and 7.22 respectively. The patient had a potassium of 4.7. The patient's chest x- ray showed moderate cardiomegaly with interstitial edema, mildly increased when compared to the prior examination. Hospital Course Patient was admitted to inpatient telemetry floor. Nephrology consult was obtained. The patient underwent hemodialysis with improvement in the patient's respiratory symptoms. The patient's dyspnea and underlying hypoxia could have been most probably secondary to nephrogenic pulmonary edema. The patient's repeat BMP on 05/21/2017 showed hyperkalemia. Consequently, the patient underwent another treatment of hemodialysis with improvement of the patient's potassium levels. The patient's symptoms of dyspnea resolved with aggressive hemodialysis. The patient has underlying essential hypertension. The patient was maintained on antihypertensives for the same. Patient has underlying normocytic normochromic anemia secondary to underlying end-stage renal disease. The patient's H&H remained stable. The patient has a history of type 2 diabetes mellitus. The patient was not on any medications at home. The patient's hemoglobin A1c was within normal limits. The patient was maintained on sliding scale insulin to treat any hyperglycemia secondary to underlying stress from hospitalization. The patient was noticed to be taking marijuana at home for apparently his abdominal pain. He had multiple episodes of vomiting and abdominal pain. He has possible gastroparesis as per esophagogastroduodenoscopy done in January 2012. The patient was maintained on prokinetics and antiemetics. Discharge disposition/plan Patient will be discharged home. However, patient left the hospital before providing discharge instructions and without signing the AGAINST MEDICAL ADVICE form. At this time I would like to thank all the consultants for seeing the patient and providing clinical recommendations. Case discussed with Dr. aTnner. Home Meds Active Scripts Tramadol HCl (Tramadol HCl) 50 Mg Tablet, 50 MG PO Q6 Y for PAIN, #20 TAB Prov:ZURDO SUTHERLAND MD 07/06/16 Ondansetron (Ondansetron Odt) 4 Mg Tab.rapdis, 4 MG PO Q6H Y for NAUSEA AND/OR VOMITING, #30 TAB Prov:ZURDO SUTHERLAND MD 07/06/16 Reported Medications Multivitamins* (Theragran*) 1 Tab Tab, 1 TAB PO DAILY, TAB 05/20/17 Cinacalcet* (Sensipar*) 30 Mg Tab, 30 MG PO QPM, TAB 05/20/17 Sevelamer Hcl* (Renagel*) 800 Mg Tablet, 800 MG PO WITH MEALS, TAB 05/20/17 Nifedipine* (Nifedipine ER*) 30 Mg Tablet.sa, 30 MG PO DAILY, TAB.SA 05/20/17 Carvedilol (Coreg) 6.25 Mg Tablet, 6.25 MG PO BID 06/24/12 Metoclopramide* (Reglan*) 10 Mg Tablet, 10 MG PO AC MEALS AND BEDTIME 06/24/12 Discontinued Reported Medications Metoprolol Tartrate* (Lopressor*) 25 Mg Tab, 25 MG PO BID, #60 TAB 05/20/17 Hydrocodone/Acetaminophen ([place] 10-325 Tablet) 1 Each Tablet, 1 EACH PO, TAB 05/20/17 Carvedilol* (Carvedilol*) 6.25 Mg Tablet, 6.25 MG PO WITH BREAKFAST DINNE, #60 TAB 05/20/17 Pantoprazole* (Protonix*) 40 Mg Tablet.dr, 40 MG PO Y FOR GASTRIC UPSET 06/24/12 Follow-up Plan The patient left before providing discharge instructions. Primary Care Provider Jag Valdovinos MD Time spent on discharge: < 30 minutes Pending Labs Laboratory Tests Test 05/21/17 18:41 05/21/17 21:45 05/22/17 07:04 05/22/17 07:52 Bedside Glucose 118mg/dL (70-220) 83mg/dL (70-220) 145mg/dL (70-220) White Blood Count 5.210^3/ul (4.8-10.8) Red Blood Count 3.2210^6/ul (4.70-6.10) Hemoglobin 10.0g/dl (14.0-18.0) Hematocrit 30.7% (42.0-52.0) Mean Corpuscular Volume 95.3fl (82.0-101.0) Mean Corpuscular Hemoglobin 31.1pg (29.0-33.0) Mean Corpuscular Hemoglobin Concent 32.6g/dl (32.0-37.0) Red Cell Distribution Width 14.6% (11.5-14.5) Platelet Count 26357^3/UL (140-415) Mean Platelet Volume 10.2fl (7.4-10.4) Neutrophils % 58.8% (39.0-77.0) Lymphocytes % 25.6% (15.0-51.0) Monocytes % 9.4% (0.0-11.0) Eosinophils % 4.8% (0.0-7.0) Basophils % 1.2% (0.0-2.0) Nucleated Red Blood Cells % 0.0/100WBC (0.0-0.0) Neutrophils # 3.110^3/ul (1.6-7.5) Lymphocytes # 1.310^3/ul (0.8-2.9) Monocytes # 0.510^3/ul (0.3-0.9) Eosinophils # 0.310^3/ul (0.0-0.5) Basophils # 0.110^3/ul (0.0-0.1) Nucleated Red Blood Cells # 0.010^3/ul (0.0-0.0) Sodium Level 136mmol/L (135-144) Potassium Level 4.9mmol/L (3.5-5.1) Chloride Level 95mmol/L (97-110) Carbon Dioxide Level 28mmol/L (21-31) Anion Gap 18 (8-16) Blood Urea Nitrogen 44mg/dl (7-20) Creatinine 7.74mg/dl (0.61-1.24) Glucose Level 123mg/dl (70-220) Calcium Level 9.0mg/dl (8.4-10.2) Phosphorus Level 5.5mg/dl (2.5-4.9) Magnesium Level 2.1mg/dl (1.7-2.5) Test 05/22/17 11:52 Bedside Glucose 169mg/dL (70-220) XAVIER PHIPPS NP May 22, 2017 15:12
== END 2017-05-22 12:45 | disposition left against medical advice (07) | DRG 682 ==
LOC: E/R 05:16 → TEL 07:28
PROVIDERS: ADMIT Family Medicine; ATTEND Family Medicine
PROC: 5A1D60Z (ICD-10-PCS; principal; 2017-05-20)
DX: I13.11 Hypertensive heart and chronic kidney disease without heart failure, with stage 5 chronic kidney disease, or end stage renal disease (principal); J96.01 Acute respiratory failure with hypoxia; J81.1 Chronic pulmonary edema; K31.84 Gastroparesis; N18.6 End stage renal disease; E83.9 Disorder of mineral metabolism, unspecified; E11.43 Type 2 diabetes mellitus with diabetic autonomic (poly)neuropathy; E11.22 Type 2 diabetes mellitus with diabetic chronic kidney disease; Z99.2 Dependence on renal dialysis; D63.1 Anemia in chronic kidney disease; Z91.14 Patient's other noncompliance with medication regimen; Z89.422 Acquired absence of other left toe(s); Z89.421 Acquired absence of other right toe(s); Z90.49 Acquired absence of other specified parts of digestive tract; M89.8X9 Other specified disorders of bone, unspecified site; E87.5 Hyperkalemia; F12.90 Cannabis use, unspecified, uncomplicated
CPT/HCPCS: 36415; 71010; 80048; 80053; 80061; 82962; 83036; 83605; 83690; 83735; 84100; 84439; 84443; 84484; 85025; 85610; 85730; 90686; 90935; 93005; 96374; 96375; 96376; J1170; J1644; J1815; J1940; J2060; J2270; J2405; J2765; J7042

== ENCOUNTER 2017-10-19 11:47 | Inpatient (IN) | END 2017-10-20 10:30 | disposition home or self-care (01) | DRG 391 ==

== ENCOUNTER 2017-10-25 | Inpatient (IN) | END 2017-10-27 08:00 | disposition left against medical advice (07) | DRG 391 ==

== ENCOUNTER 2017-11-04 06:42 | Emergency (ER) | END 2017-11-04 13:57 | disposition home or self-care (01) ==

== ENCOUNTER 2019-02-28 05:07 | Inpatient (IN) | payer BC ==
[~2019-02-28] VITALS: Ht 172.7 cm; Wt 84.1 kg
[2019-02-28] VITALS (18 sets, daily range): BP systolic 88–156; BP diastolic 66–111; PULSE 20–102; RESP 20; Ht 172.7 cm; Wt 84.1 kg
[~2019-02-28 05:07] MED LIST changes: -CARV6.2545 PO; -METO10TA92 PO; +MULTI PO; -ONDA4TAB14 PO; -PANT40TA3 PO; -TRAM50TA2 PO
--- NOTE | 2019-02-28 05:55 | ERD ---
ER Documentation Chief Complaint Chief Complaint BIB RA89 C/O SOB DURING DIALYSIS, MISSED DIALYSIS FOR A WK HPI The patient is a 33 year old male, presenting to the ER from dialysis center b/c of severe dyspnea after having 45 minutes of dialysis. His las dialysis was 5 days ago. He denies fever, headache, chest pain, c/o chronic abdominal pain, denies dysuria, diarrhea. He smokes THC PMH: CKD on HD M/W/F, DM, HTN, cardiomyopathy, h/o CVA, asthma PSH: Cholecystectomy, HD catheter ROS All systems reviewed and are negative except as per history of present illness. Medications Home Meds Discontinued Reported Medications Multivitamins* (Theragran*) 1 Tab Tab, 1 TAB PO DAILY, TAB 05/20/17 Allergies Allergies: Coded Allergies: No Known Drug Allergies (Unverified Allergy, Unknown, 02/28/19) PMhx/Soc Anesthesia Reaction: No Hx Neurological Disorder: Yes (MILD STROKE) Hx Respiratory Disorders: Yes (ASTHMA) Hx Cardiac Disorders: Yes (HTN) Hx Miscellaneous Medical Probl: Yes (CKD) Hx Alcohol Use: No Hx Substance Use: No Hx Tobacco Use: No Smoking Status: Never smoker Physical Exam Vitals Vital Signs Date Temp Pulse Resp B/P (MAP) Pulse Ox O2 O2 Flow FiO2 Time Delivery Rate 02/28/19 130 23 149/102 98 BIPAP 06:40 (118) 02/28/19 113 99 100 05:15 02/28/19 98.5 121 28 149/121 93 05:07 (130) 02/28/19 Nasal 5.0 05:07 Cannula 02/28/19 Nasal 5 05:07 Cannula Physical Exam Const: Moderate acute distress Head: Atraumatic Eyes: Normal Conjunctiva ENT: Normal External Ears, Nose and Mouth. Neck: Full range of motion. No meningismus. Resp: Bibasilar crackle, tachypneic Cardio: Regular tachycardic Abd: Soft, non tender, non distended. Normal bowel sounds Skin: No petechiae or rashes Back: No midline or flank tenderness Ext: No cyanosis, or edema Neur: Awake and alert Psych: Anxious Result Diagram: 02/28/19 0502/28/19 0520 Results 24 hrs Laboratory Tests Test 02/28/19 05:20 White Blood Count 6.1 10^3/ul Red Blood Count 3.50 10^6/ul Hemoglobin 11.0 g/dl Hematocrit 31.6 % Mean Corpuscular Volume 90.3 fl Mean Corpuscular Hemoglobin 31.4 pg Mean Corpuscular Hemoglobin Concent 34.8 g/dl Red Cell Distribution Width 15.3 % Platelet Count 222 10^3/UL Mean Platelet Volume 10.1 fl Immature Granulocytes % 0.300 % Neutrophils % 64.0 % Lymphocytes % 23.3 % Monocytes % 6.4 % Eosinophils % 5.5 % Basophils % 0.5 % Nucleated Red Blood Cells % 0.0 /100WBC Immature Granulocytes # 0.020 10^3/ul Neutrophils # 3.9 10^3/ul Lymphocytes # 1.4 10^3/ul Monocytes # 0.4 10^3/ul Eosinophils # 0.3 10^3/ul Basophils # 0.0 10^3/ul Nucleated Red Blood Cells # 0.0 10^3/ul Prothrombin Time 14.0 Sec Prothrombin Time Ratio 1.1 INR International Normalized Ratio 1.07 Activated Partial Thromboplast Time 42.3 Sec Sodium Level 145 mmol/L Potassium Level 4.9 mmol/L Chloride Level 100 mmol/L Carbon Dioxide Level 31 mmol/L Anion Gap 14 Blood Urea Nitrogen 49 mg/dl Creatinine 13.21 mg/dl Est Glomerular Filtrat Rate mL/min 5 mL/min Glucose Level 116 mg/dl Calcium Level 8.7 mg/dl Troponin I 0.048 ng/ml Current Medications Medications Dose Sig/Lia Start Time Status Last (Trade) Ordered Route PRN Stop Time Admin Dose Reason Admin Ondansetron 4 mg Q6H PRN 02/28/19 UNV HCl (Zofran IV NAUSEA 07:00 Inj) AND/OR VOMITING Albuterol/ 3 ml Q4H RESP 02/28/19 UNV Ipratropium THERAPY NEB 09:00 (Duoneb) 650 mg Q6H PRN 02/28/19 UNV Acetaminophen PO PAIN 07:00 (Tylenol LEVEL 1-3 OR Liquid) FEVER Heparin 5,000 unit Q12 SC 02/28/19 UNV Sodium 09:00 (Porcine) (Heparin (5000 Units/1ml)) Procedures/[place] [id number] Radiology Main Line: [phone] DIAGNOSTIC IMAGING REPORT Patient: RUPERT ANDREW DOB: 1985 Age: 33 Sex: M MR #: [id number] DOS: 02/28/19 0516 Ordering MD: KOBI OLGUIN MD Location: E/R Room/Bed: PROCEDURE: XR Chest. CLINICAL INDICATION: Shortness of breath TECHNIQUE: AP portable chest was obtained. COMPARISON: Chest 05/28/2017 FINDINGS: No change in the right central venous catheter in good position without pneumothorax. Implant device and electrode overlying the patient's left hemithorax. The heart is borderline normal limits in size. No evidence of pulmonary vascular congestion acute lung consolidation pleural effusions or pneumothorax. IMPRESSION: No evidence congestive heart or pneumonia. RPTAT:AAJJ Physician Tamela Date Time Electronically viewed and signed by Moncho Valencia Physician on 02/28/2019 06:00 BM/ CC: KOBI OLGUIN MD [id number] MDM: The patient is a 33 year old male, presenting with acute respiratory failure with low o2 saturation, responding to BIPAP. He will will need urgent dialysis. 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 He will arrange for dialysis Critical Care Time: 35 minutes, excluding billable procedure Departure Diagnosis: Primary Impression: Respiratory failure, acute Additional Impressions: Fluid overload Anemia Condition: Critical Comments I d/w the findings with the patient. I discuss the patient with Dr Feliciano at 5:55 am, who was made aware of the patient condition/treatment. He accepted the patient to ICU KOBI OLGUIN MD Feb 28, 2019 05:55
[2019-02-28] MEDS: ONDANSETRON 4 MG INJ IV PRN ×2 (06:54→18:38)
[2019-02-28] MEDS ORDERED: LORAZEPAM 2 MG INJ IV ONE (07:00)
[2019-02-28] MEDS ORDERED: ACETAMINOPHEN 650MG/20.3ML CUP PO PRN (07:00)
[2019-02-28] MEDS ORDERED: ALBUTEROL/IPRATROPIUM (NEB) 3 ML AMP ONE (07:08)
[2019-02-28] MEDS: ALBUTEROL/IPRATROPIUM (NEB) 3 ML AMP NEB SCH ×2 (07:10→21:00)
--- NOTE | 2019-02-28 08:03 | HP ---
Date/Time of Note Date/Time of Note DATE: 02/28/19 TIME: 08:00 Assessment/Plan VTE Prophylaxis Pharmacological prophylaxis: heparin Lines/Catheters IV Catheter Type (from Nrsg): Saline Lock Assessment/Plan Assessment/Plan 1. Hypoxic respiratory failure: Currently on BiPAP -Continue PPV -Nephrology for dialysis -Bronchodilators as needed 2. ESRD on HD: See #1 3. Hypertension: Adjust antihypertensive as needed Result Diagram: 02/28/19 0520 02/28/19 0520 Results 24hrs Laboratory Tests Test 02/28/19 05:20 02/28/19 07:12 White Blood Count 6.1 # Red Blood Count 3.50 L Hemoglobin 11.0 L Hematocrit 31.6 L Mean Corpuscular Volume 90.3 Mean Corpuscular Hemoglobin 31.4 Mean Corpuscular Hemoglobin Concent 34.8 Red Cell Distribution Width 15.3 H Platelet Count 222 Mean Platelet Volume 10.1 Immature Granulocytes % 0.300 Neutrophils % 64.0 Lymphocytes % 23.3 Monocytes % 6.4 Eosinophils % 5.5 Basophils % 0.5 Nucleated Red Blood Cells % 0.0 Immature Granulocytes # 0.020 Neutrophils # 3.9 Lymphocytes # 1.4 Monocytes # 0.4 Eosinophils # 0.3 Basophils # 0.0 Nucleated Red Blood Cells # 0.0 Prothrombin Time 14.0 Prothrombin Time Ratio 1.1 INR International Normalized Ratio 1.07 Activated Partial Thromboplast Time 42.3 H Sodium Level 145 H Potassium Level 4.9 Chloride Level 100 Carbon Dioxide Level 31 Anion Gap 14 H Blood Urea Nitrogen 49 H Creatinine 13.21 H Est Glomerular Filtrat Rate mL/min 5 L Glucose Level 116 Calcium Level 8.7 Troponin I 0.048 Bedside Glucose 92 HPI/ROS Admit Date/Time Admit Date/Time Hx of Present Illness Patient is a 33-year-old male with a history of hypertension, ESRD on HD who was brought to the ER from the dialysis center for shortness of breath. Patient is currently on BiPAP and was just given Ativan and as such unable to gather information with the patient. When presented to the ER, patient was hypoxic, tachypneic and tachycardic. Chest x-ray in the ER without acute findings. PMH/Family/Social Past Medical History Medical History: other (See HPI) Medications Current Medications Ondansetron HCl (Zofran Inj) 4 mg Q6H PRN IV NAUSEA AND/OR VOMITING Last administered on 02/28/19at 06:54; Admin Dose 4 MG; Start 02/28/19 at 07:00 Albuterol/ Ipratropium (Duoneb) 3 ml Q4H RESP THERAPY NEB Last administered on 02/28/19at 07:10; Admin Dose 3 ML; Start 02/28/19 at 09:00 Acetaminophen (Tylenol Liquid) 650 mg Q6H PRN PO PAIN LEVEL 1-3 OR FEVER; Start 02/28/19 at 07:00 Heparin Sodium (Porcine) (Heparin (5000 Units/1ml)) 5,000 unit Q12 SC ; Start 02/28/19 at 09:00 Coded Allergies: No Known Drug Allergies (Unverified Allergy, Unknown, 02/28/19) Past Surgical History Past Surgical Hx: cholecystectomy, other Family History Significant Family History: no pertinent family hx Social History Alcohol Use: other (Unknown) Smoking Status: Unknown if ever smoked Drug Use: other (Unknown) Exam/Review of Systems Vital Signs Vitals Vital Signs Date Temp Pulse Resp B/P (MAP) Pulse Ox O2 O2 Flow FiO2 Time Delivery Rate 02/28/19 122 28 97 100 07:11 02/28/19 149/102 BIPAP 06:40 (118) 02/28/19 98.5 05:07 02/28/19 5.0 05:07 Exam Constitutional: other (On BiPAP, sleepy) Head: normocephalic, atraumatic Eyes: PERRL Respiratory: other (Decreased breath sounds at the base anteriorly) Cardiovascular: other (Tachycardic regular rhythm) Gastrointestinal: soft Extremities: normal pulses CHENTE STEEL MD Feb 28, 2019 08:03
[2019-02-28] MEDS: HEPARIN 5,000 UNIT/1 ML VIAL SC SCH ×2 (09:00→21:00)
--- NOTE | 2019-02-28 09:07 | CONS ---
DATE OF ADMISSION: 02/28/2019 DATE OF CONSULTATION: 02/28/2019 TYPE OF CONSULTATION: Nephrology. Incomplete dictation. Dictated By: SHAJI LUX DO NR/FAUSTINO Conf#: [id number] DID#: [id number] CC: KOBI OLGUIN MD;*EndCC*
--- NOTE | 2019-02-28 09:15 | CONS ---
DATE OF ADMISSION: 02/28/2019 DATE OF CONSULTATION: 02/28/2019 TYPE OF CONSULTATION: Nephrology. REASON FOR CONSULTATION: End-stage renal disease, volume overload. PHYSICIAN REQUESTING CONSULT: Dr. Olguin. HISTORY OF PRESENT ILLNESS: This is a 33-year-old male with a past medical history of end-stage kishan l disease on dialysis Tuesday, Tuesday, Tuesday. Last hemodialysis was on Tuesday. The patient prese nted to [facility] after 45 minutes of hemodialysis due to progressive shortness of breath. The patient upon arrival to the emergency room had a chest x-ray, which showed no evidence of pneumonia. No gross evidence of failure as read by Radiology. The patient denies any hemoptysis, hematemesis, or hematochezia. Upon my evaluation of the patient at this time, he is currently in respiratory distress. The patient 's primary elementary reading specialist is unknown. The patient states he dialyzes at [facility]. The patient stated ap proximately 2 to 3 liters are removed with hemodialysis. PAST MEDICAL HISTORY: As stated above, history of end-stage renal disease, hypertension, history of anemia, mineral bone disorder. PAST SURGICAL HISTORY: Status post Perm-A-Cath placement. ALLERGIES: NO KNOWN DRUG ALLERGIES. FAMILY HISTORY: No family history of kidney disease. SOCIAL HISTORY: He denies any previous history of drug use. MEDICATIONS: The patient's medications have been reviewed. REVIEW OF SYSTEMS: A 14-point review of systems was conducted. Pertinent positives stated in HPI, o therwise negative. PHYSICAL EXAMINATION: VITAL SIGNS: Blood pressure is 152/96, respirations 16, pulse 72, temperature 98.7. GENERAL: The patient in mild distress on BiPAP. HEENT: Head is normocephalic. Pupils are reactive to light. NECK: Supple. HEART: Regular rate. LUNGS: Show diminished breath sounds at the base. Positive rhonchi. ABDOMEN: Soft, nontender to palpation without rebound or guarding. EXTREMITIES: Negative for clubbing, cyanosis, no edema. DERMATOLOGIC: No rashes. MUSCULOSKELETAL: No joint effusion. NEUROLOGIC: No change in exam. LABORATORY DATA: Reviewed. IMAGING STUDIES: Reviewed. ASSESSMENT AND PLAN: This is a 33-year-old male who presents with: 1. End-stage renal disease. Plan is for urgent hemodialysis today. Access is Perm-A-Cath. We will dialyze for 3-1/2 hours, 3 K bath, goal of ultrafiltration of approximately 3 liters. 2. Volume overload. The patient is grossly volume overloaded, noted congestion on x-ray and edema o n exam. Continue ultrafiltration with dialysis. 3. Anemia. Continue to monitor hemoglobin and hematocrit levels. We will give Epogen as needed. 4. Mineral bone disorder. Monitor calcium and phosphorus levels. The patient will be resumed on ph osphate binders. 5. Hypertension. We will continue to monitor. Continue current blood pressure regimen. 6. Tachyarrhythmia, likely secondary to respiratory failure. Continue to monitor. 7. History of abdominal pain. Thank you, Dr. Olguin, for this interesting consult. It will be a pleasure to follow the patient with you throughout the hospital. Dictated By: SHAJI LUX DO NR/NTS Conf#: [id number] DID#: [id number] CC: KOBI OLGUIN MD;*EndCC*
--- NOTE | 2019-02-28 15:51 | PN ---
Date/Time of Note Date/Time of Note DATE: 02/28/19 TIME: 15:07 Assessment/Plan VTE Prophylaxis Pharmacological prophylaxis: heparin Lines/Catheters IV Catheter Type (from Nrs): Saline Lock Assessment/Plan Hospital Course 1. Hypoxic respiratory failure secondary to fluid overload -Dialysis per nephrology -Supplemental oxygen -Bronchodilators as needed 2. ESRD on HD: See #1 3. Hypertension: Adjust antihypertensive as needed Prophylaxis: Heparin Result Diagram: 02/28/19 0520 02/28/19 0520 Results 24hrs Laboratory Tests Test 02/28/19 05:20 02/28/19 07:12 White Blood Count 6.1 # Red Blood Count 3.50 L Hemoglobin 11.0 L Hematocrit 31.6 L Mean Corpuscular Volume 90.3 Mean Corpuscular Hemoglobin 31.4 Mean Corpuscular Hemoglobin Concent 34.8 Red Cell Distribution Width 15.3 H Platelet Count 222 Mean Platelet Volume 10.1 Immature Granulocytes % 0.300 Neutrophils % 64.0 Lymphocytes % 23.3 Monocytes % 6.4 Eosinophils % 5.5 Basophils % 0.5 Nucleated Red Blood Cells % 0.0 Immature Granulocytes # 0.020 Neutrophils # 3.9 Lymphocytes # 1.4 Monocytes # 0.4 Eosinophils # 0.3 Basophils # 0.0 Nucleated Red Blood Cells # 0.0 Prothrombin Time 14.0 Prothrombin Time Ratio 1.1 INR International Normalized Ratio 1.07 Activated Partial Thromboplast Time 42.3 H Sodium Level 145 H Potassium Level 4.9 Chloride Level 100 Carbon Dioxide Level 31 Anion Gap 14 H Blood Urea Nitrogen 49 H Creatinine 13.21 H Est Glomerular Filtrat Rate mL/min 5 L Glucose Level 116 Calcium Level 8.7 Troponin I 0.048 Hepatitis B Surface Antigen NEGATIVE Hepatitis B Surface Antibody NEGATIVE Bedside Glucose 92 Subjective 24 Hr Interval Summary Constitutional: no complaints Exam/Review of Systems Exam Vitals Vital Signs Date Temp Pulse Resp B/P (MAP) Pulse Ox O2 O2 Flow FiO2 Time Delivery Rate 02/28/19 100 23 132/98 100 BIPAP 2.0 13:45 (109) Nasal Cannula 02/28/19 100 09:00 02/28/19 98.5 05:07 Constitutional: alert Respiratory: clear to auscultation Cardiovascular: regular rate and rhythm Gastrointestinal: soft; No distended Musculoskeletal: nl extremities to inspection Results Results 24hrs Laboratory Tests Test 02/28/19 05:20 02/28/19 07:12 White Blood Count 6.1 # Red Blood Count 3.50 L Hemoglobin 11.0 L Hematocrit 31.6 L Mean Corpuscular Volume 90.3 Mean Corpuscular Hemoglobin 31.4 Mean Corpuscular Hemoglobin Concent 34.8 Red Cell Distribution Width 15.3 H Platelet Count 222 Mean Platelet Volume 10.1 Immature Granulocytes % 0.300 Neutrophils % 64.0 Lymphocytes % 23.3 Monocytes % 6.4 Eosinophils % 5.5 Basophils % 0.5 Nucleated Red Blood Cells % 0.0 Immature Granulocytes # 0.020 Neutrophils # 3.9 Lymphocytes # 1.4 Monocytes # 0.4 Eosinophils # 0.3 Basophils # 0.0 Nucleated Red Blood Cells # 0.0 Prothrombin Time 14.0 Prothrombin Time Ratio 1.1 INR International Normalized Ratio 1.07 Activated Partial Thromboplast Time 42.3 H Sodium Level 145 H Potassium Level 4.9 Chloride Level 100 Carbon Dioxide Level 31 Anion Gap 14 H Blood Urea Nitrogen 49 H Creatinine 13.21 H Est Glomerular Filtrat Rate mL/min 5 L Glucose Level 116 Calcium Level 8.7 Troponin I 0.048 Hepatitis B Surface Antigen NEGATIVE Hepatitis B Surface Antibody NEGATIVE Bedside Glucose 92 Medications Medication Current Medications Ondansetron HCl (Zofran Inj) 4 mg Q6H PRN IV NAUSEA AND/OR VOMITING Last administered on 02/28/19at 06:54; Admin Dose 4 MG; Start 02/28/19 at 07:00 Albuterol/ Ipratropium (Duoneb) 3 ml Q4H RESP THERAPY NEB Last administered on 02/28/19at 07:10; Admin Dose 3 ML; Start 02/28/19 at 09:00 Acetaminophen (Tylenol Liquid) 650 mg Q6H PRN PO PAIN LEVEL 1-3 OR FEVER; Start 02/28/19 at 07:00 Heparin Sodium (Porcine) (Heparin (5000 Units/1ml)) 5,000 unit Q12 SC ; Start 02/28/19 at 09:00 RYLAND BALDERAS Feb 28, 2019 15:51
[2019-03-01 00:40] VITALS: BP 118/91; PULSE 104; RESP 20
[2019-03-01] MEDS: ALBUTEROL/IPRATROPIUM (NEB) 3 ML AMP NEB SCH ×3 (01:38→09:00)
[2019-03-01] MEDS: DIPHENHYDRAMINE 50 MG INJ IV ONE ×2 (02:38→04:45)
[2019-03-01 04:28] VITALS: BP 107/70; PULSE 99; RESP 20
[2019-03-01 07:19] VITALS: BP 121/78; PULSE 105; RESP 20
--- NOTE | 2019-03-01 08:20 | PN ---
DATE: 03/01/2019 SUBJECTIVE: The patient is clinically improved, currently off BiPAP. No other events noted overnigh t. The patient had hemodialysis yesterday, tolerated well. OBJECTIVE: VITAL SIGNS: Blood pressure is 121/78, pulse 105, respirations 20, temperature 98.4. HEENT: Head is normocephalic. NECK: Supple. HEART: Regular rate. LUNGS: Show diminished breath sounds at the base. ABDOMEN: Soft, nontender to palpation without rebound or guarding. EXTREMITIES: Negative for clubbing, cyanosis, no edema. DERMATOLOGIC: No rashes. MUSCULOSKELETAL: No joint effusion. NEUROLOGIC: No change in exam. MEDICATIONS: The patient's medications have been reviewed. LABORATORY: The laboratory data has been reviewed. IMAGING STUDIES: Have been reviewed. ASSESSMENT AND PLAN: 1. End-stage renal disease. The patient is on dialysis Tuesday, Tuesday, Tuesday. The patient had hemodialysis yesterday, tolerated well. Plan for dialysis again today. 2. Volume overload, improving. Continue ultrafiltration with hemodialysis. 3. Anemia, monitor H and H levels, continue Epogen as needed. 4. Mineral bone disorder. Monitor calcium and phosphorus levels. 5. Hypertension. Continue current blood pressure regimen. Continue ultrafiltration with dialysis. 6. Tachyarrhythmia improved. 7. Acute respiratory failure secondary to volume overload, improved. The patient is currently on Bi PAP. 8. History of abdominal pain. Dictated By: SHAJI SANTIAGO/FAUSTINO Conf#: [id number] DID#: [id number]
[2019-03-01] MEDS: HEPARIN 5,000 UNIT/1 ML VIAL SC SCH (08:30)
[2019-03-01 11:20] VITALS: BP 134/97; PULSE 107; RESP 20
--- NOTE | 2019-03-01 12:42 | DS ---
Date/Time of Note Date/Time of Note DATE: 03/01/19 TIME: 12:38 Discharge Summary Admission/Discharge Info Admit Date/Time Feb 28, 2019 at 06:42 Discharge Date/Time Mar 01, 2019 at 11:26 Discharge Diagnosis Patient eloped 1. Hypoxic respiratory failure secondary to fluid overload -Status post dialysis with nephrology -Patient no longer required supplemental oxygen 2. ESRD on HD -Patient's permacath is now malfunctioning, nephrology scheduled for replacement tomorrow but patient was not interested in staying and subsequently eloped, patient states that he will return to the ER tomorrow for exchange of permacath 3. Hypertension -Home meds Patient Condition: Good Hospital Course Patient is a 33-year-old male with history of hypertension and end-stage renal disease on hemodialysis, patient presents from the dialysis center with fluid overload and required emergent dialysis. Patient's permacath was malfunctioning and nephrology arrange for exchange but patient did not want to stay and eloped. Patient stated that he will return the following day and did not want to stay in the hospital on the 01 of March. Home Meds Discontinued Reported Medications Multivitamins* (Theragran*) 1 Tab Tab, 1 TAB PO DAILY, TAB 05/20/17 Primary Care Provider Jag Valdovinos MD Time spent on discharge: > 30 minutes RYLAND BALDERAS Mar 01, 2019 12:42
--- NOTE | 2019-03-02 11:12 | RADRPT ---
Echocardiogram Report Patient Name: RUPERT ANDREWPatient ID: [id number] : 1985 (33y 2m)Study Date: 02/28/2019 3:24:17 PM Gender: MAccession #: [id number] Tech: Tez Scott [facility] Location: [id number] Ref.Physician: CHENTE STEEL Height(Cm): BSA: Weight(Kg): Quality: AdequateOrder Physician: CHENTE STEEL Account #: Procedures: Echocardiographic Report: Transthoracic echocardiogram with complete 2D, M-Mode, and doppler examination. Indications: Shortness of breath. Measurements: 2D/M Mode Doppler Measurement Value Normal Range Measurement Value Normal Range LVIDd 2D 5.4 [ 4.2 - 5.8 ] cm AV Peak Radu 1.2 [ 100.0 - 170.0 ] cm/sec LVIDs 2D 5.2 [ 2.5 - 4.0 ] cm AV Peak PG 6.0 [ 2.0 - 9.0 ] mmHg LVPWd 2D 1.1 [ 0.6 - 1.0 ] cm LVOT Peak Radu 0.9 [ 70.0 - 110.0 ] cm/sec IVSd 2D 1.1 [ 0.6 - 1.0 ] cm LVOT Peak PG 3.0 [ 2.0 - 6.0 ] mmHg AoR Diam 2D 2.9 [ 2.6 - 3.4 ] cm MV E Peak Radu 1.0 [ 60.0 - 130.0 ] cm/sec EDV 2D 144.0 [ 62.0 - 150.0 ] ml MV A Peak Radu 1.3 [ 100.0 - 120.0 ] cm/sec ESV 2D 128.0 [ 21.0 - 61.0 ] ml MV E/A 0.8 [ 0.8 - 1.5 ] ratio EF 2D 11.1 [ 52.0 - 72.0 ] percent MV Decel Time 116 [ 104 - 258 ] msec LA Dimen 2D 4.0 [ 3.0 - 4.0 ] cm Lat E` Radu 0.1 [ 10.0 - 15.0 ] cm/sec Lateral E/E` 16.8 [ 1.0 - 2.0 ] ratio Med E` Radu 0.1 cm/sec MV E/A 0.8 [ 0.8 - 1.5 ] ratio TR Peak Radu 3.7 [ 100.0 - 280.0 ] cm/sec TR Peak PG 55.0 mmHg RVSP 58.0 [ 10.0 - 36.0 ] mmHg Findings: Left Ventricle: Normal left ventricular cavity size. Left ventricular wall thickness upper limits of normal. Moderate global left ventricular systolic dysfunction. Ejection fraction is visually estimated at 35 %. Tissue Doppler/Mitral Doppler indices are consistent with impaired relaxation (Stage I diastolic dysfunction). Right Ventricle: Normal right ventricular systolic function. Moderate enlargement of right ventricle. Left Atrium: The left atrium is normal in size. Right Atrium: There is mild enlargement of right atrium. Mitral Valve: Mild mitral leaflet calcification. Mild mitral annular calcification. Moderate mitral valve regurgitation. Aortic Valve: No significant aortic stenosis or insufficiency. Aortic cusps appear mildly calcified. Tricuspid Valve: Normal appearance of the tricuspid valve. The estimated Peak RVSP is 58 mmHg. There is mild tricuspid regurgitation. Pericardium: Normal pericardium with no significant pericardial effusion. Left pleural effusion seen. Aorta: Normal aortic root. IVC: Normal size and normal respiratory collapse consistent with normal right atrial pressure. Conclusions: Normal left ventricular cavity size. Left ventricular wall thickness upper limits of normal. Moderate global left ventricular systolic dysfunction. Ejection fraction is visually estimated at 35 %. Tissue Doppler/Mitral Doppler indices are consistent with impaired relaxation (Stage I diastolic dysfunction). Mild mitral leaflet calcification. Mild mitral annular calcification. Moderate mitral valve regurgitation. No significant aortic stenosis or insufficiency. Aortic cusps appear mildly calcified. Electronically Signed By: Bahman Cook 2019-03-02 11:11:42 PDT
== END 2019-03-01 11:26 | disposition left against medical advice (07) | DRG 189 ==
LOC: EDBD → E/R 05:07 → TEL 06:42 → CANRESERV 09:55 → EDBEDREQSVC 11:58 → EDBEDREQ 11:58
PROVIDERS: ADMIT Internal Medicine; ATTEND Internal Medicine
PROC: 5A09357 Assistance with Respiratory Ventilation, Less than 24 Consecutive Hours, Continuous Positive Airway Pressure (ICD-10-PCS; principal; 2019-02-28)
DX: J96.01 Acute respiratory failure with hypoxia (principal); N18.6 End stage renal disease; I12.0 Hypertensive chronic kidney disease with stage 5 chronic kidney disease or end stage renal disease; I42.9 Cardiomyopathy, unspecified; T82.41XA Breakdown (mechanical) of vascular dialysis catheter, initial encounter; E87.70 Fluid overload, unspecified; E11.22 Type 2 diabetes mellitus with diabetic chronic kidney disease; J45.909 Unspecified asthma, uncomplicated; R00.0 Tachycardia, unspecified; D64.9 Anemia, unspecified; Z99.2 Dependence on renal dialysis; Z91.15 Patient's noncompliance with renal dialysis; Z86.73 Personal history of transient ischemic attack (TIA), and cerebral infarction without residual deficits; Y84.8 Other medical procedures as the cause of abnormal reaction of the patient, or of later complication, without mention of misadventure at the time of the procedure
CPT/HCPCS: 36415; 71045; 80048; 82962; 83735; 84484; 85025; 85610; 85730; 86706; 87340; 90935; 93005; 93306; 94660; 94664; J1200; J1644; J2060; J2405

== ENCOUNTER 2019-03-02 04:09 | Observation (INO) | payer BC ==
[~2019-03-02] VITALS: Ht 160 cm; Wt 63.0 kg
[2019-03-02] VITALS (29 sets, daily range): BP systolic 98–141; BP diastolic 78–101; PULSE 94–102; RESP 14–24
[2019-03-02] MEDS ORDERED: ACETAMINOPHEN 325 MG TAB PO PRN ×2 (04:30→07:30)
[2019-03-02] MEDS ORDERED: ONDANSETRON 4 MG INJ IV PRN (04:30)
--- NOTE | 2019-03-02 04:53 | ERD ---
ER Documentation Chief Complaint Chief Complaint bib self, referred by neph for cath problem, HPI Is a 33-year-old male who presents for evaluation of permacath replacement. He has a history of renal failure, and he was receiving dialysis through a permacath, however he had a recent admission for volume overload, where he had a malfunctioning permacath. The plan had been to replace the permacath, however the patient eloped, and had plan to return yesterday, but he was unable to make it. He presents today, he denies any shortness of breath, he is otherwise been asymptomatic. ROS All systems reviewed and are negative except as per history of present illness. Medications Home Meds Discontinued Reported Medications Multivitamins* (Theragran*) 1 Tab Tab, 1 TAB PO DAILY, TAB 05/20/17 Allergies Allergies: Coded Allergies: No Known Drug Allergies (Unverified Allergy, Unknown, 02/28/19) PMhx/Soc Anesthesia Reaction: No Hx Neurological Disorder: Yes (MILD STROKE) Hx Respiratory Disorders: Yes (uses BiPAP) Hx Cardiac Disorders: Yes (HTN) Hx Miscellaneous Medical Probl: Yes (CKD) Hx Alcohol Use: No Hx Substance Use: No Hx Tobacco Use: No Physical Exam Vitals Vital Signs Date Temp Pulse Resp B/P (MAP) Pulse Ox O2 O2 Flow FiO2 Time Delivery Rate 03/02/19 98.6 79 19 149/82 100 04:15 (104) Physical Exam Const: Ambulatory, nontoxic Head: Atraumatic Eyes: Normal Conjunctiva ENT: Normal External Ears, Nose and Mouth. Neck: Full range of motion. No meningismus. Resp: Clear to auscultation bilaterally, no wheezes rales rhonchi Cardio: Regular rate and rhythm, no murmurs Abd: Soft, non tender, non distended. Normal bowel sounds Skin: No petechiae or rashes Back: No midline or flank tenderness Ext: No cyanosis, or edema Neur: Awake and alert Psych: Normal Mood and Affect Results 24 hrs Current Medications Medications Dose Sig/Lia Start Time Status Last (Trade) Ordered Route PRN Stop Time Admin Dose Reason Admin Ondansetron 4 mg BRIDGE ORDER 03/02/19 HCl (Zofran PRN IV 04:30 03/03/19 Inj) NAUSEA/VOMITI 04:29 NG 650 mg ER BRIDGE 03/02/19 Acetaminophen PRN PO 04:30 03/03/19 (Tylenol .MILD PAIN 04:29 Tab) 1-3 OR TEMP Procedures/MDM This 33-year-old male who presents for evaluation of permacatheter placement. Patient is otherwise asymptomatic, his EKG shows no evidence of ischemia. He will be admitted for evaluation of his permacatheter placement. Accepting Care Team: Current data and ongoing care discussed. Primary: Moe Consulting: none Outstanding Data: none EKG: Rate/Rhythm: Normal Sinus Rhythm QRS, ST, T-waves: No changes consistent w/ acute ischemia Impression: No evidence of ischemia or arrhythmia Departure Diagnosis: Primary Impression: Renal failure Renal failure chronicity: unspecified chronicity Qualified Codes: N19 - Unspecified kidney failure Condition: Serious MELISSA RANGEL MD Mar 02, 2019 04:52
--- NOTE | 2019-03-02 07:06 | HP ---
Date/Time of Note Date/Time of Note DATE: 03/02/19 TIME: 07:02 Assessment/Plan VTE Prophylaxis Pharmacological prophylaxis: heparin Lines/Catheters IV [facility] Saline Lock Assessment/Plan Assessment/Plan 1. Permacath malfunctioning -Vascular consult 2. ESRD on HD -Nephrology consult -See #1 3. Hypertension: BP with-in acceptable range 4. Recently admitted for hypoxic rest monica failure, secondary to fluid overload (2 days ago) -Stable Result Diagram: 03/02/19 0459 03/02/19 0459 Results 24hrs Laboratory Tests Test 03/02/19 04:59 White Blood Count 5.9 Red Blood Count 3.34 L Hemoglobin 10.4 L Hematocrit 30.7 L Mean Corpuscular Volume 91.9 Mean Corpuscular Hemoglobin 31.1 Mean Corpuscular Hemoglobin Concent 33.9 Red Cell Distribution Width 15.4 H Platelet Count 169 # Mean Platelet Volume 9.6 Immature Granulocytes % 0.300 Neutrophils % 54.9 Lymphocytes % 27.5 Monocytes % 8.9 Eosinophils % 7.7 H Basophils % 0.7 Nucleated Red Blood Cells % 0.0 Immature Granulocytes # 0.020 Neutrophils # 3.2 Lymphocytes # 1.6 Monocytes # 0.5 Eosinophils # 0.5 Basophils # 0.0 Nucleated Red Blood Cells # 0.0 Sodium Level 143 Potassium Level 5.3 H Chloride Level 101 Carbon Dioxide Level 27 Anion Gap 15 H Blood Urea Nitrogen 64 H Creatinine 11.16 H Est Glomerular Filtrat Rate mL/min 6 L Glucose Level 102 Calcium Level 8.8 Phosphorus Level 4.9 Magnesium Level 2.3 HPI/ROS Admit Date/Time Admit Date/Time Hx of Present Illness Patient is a 33-year-old male with a history of hypertension, ESRD on HD who was actually admitted by myself 2 days ago after he presented with hypoxic respirato ry failure secondary to fluid overload. He was seen by nephrology and was dialyzed. Unfortunately his permacath was started malfunctioning. Patient however left AMA to celebrate February. Now he returned to get the permacath repaired. He is a potassium was 5.3, creatinine 11. No acidosis and BP with in acceptable range PMH/Family/Social Past Medical History Past Surgical Hx: other Family History Significant Family History: no pertinent family hx Social History Alcohol Use: none Smoking Status: Never smoker Drug Use: none Exam Constitutional: other (No acute distress) Head: normocephalic, atraumatic Eyes: EOMI, PERRL Respiratory: clear to auscultation, normal air movement Cardiovascular: regular rate and rhythm Gastrointestinal: soft Extremities: normal pulses Medications Current Medications Ondansetron HCl (Zofran Inj) 4 mg BRIDGE ORDER PRN IV NAUSEA/VOMITING; Start 03/02/19 at 04:30; Stop 03/03/19 at 04:29 Acetaminophen (Tylenol Tab) 650 mg ER BRIDGE PRN PO .MILD PAIN 1-3 OR TEMP; Start 03/02/19 at 04:30; Stop 03/03/19 at 04:29 Coded Allergies: No Known Drug Allergies (Unverified Allergy, Unknown, 03/02/19) Past Surgical History Past Surgical Hx: cholecystectomy, other Family History Significant Family History: no pertinent family hx Social History Smoking Status: Never smoker Exam/Review of Systems Vital Signs Vitals Vital Signs Date Temp Pulse Resp B/P (MAP) Pulse Ox O2 O2 Flow FiO2 Time Delivery Rate 03/02/19 98.6 79 19 149/82 100 04:15 (104) CHENTE STEEL MD Mar 02, 2019 07:06
[2019-03-02] MEDS ORDERED: ALBUTEROL/IPRATROPIUM (NEB) 3 ML AMP HHN PRN (07:30)
[2019-03-02] MEDS ORDERED: NACL 0.9% 3 ML SYG IV SCH (07:30)
--- NOTE | 2019-03-02 09:00 | PN ---
DATE: 03/02/2019 SUBJECTIVE: The patient eloped yesterday and has come back to [facility] Emergency Room as the patient has a malfunctioning Perm-A-Cath. Denies any hemoptysis, hematemesis or hematoc hezia. OBJECTIVE: VITAL SIGNS: Blood pressure is 149/82, respiration 18, pulse 79, temperature 98.6. HEENT: Head is normocephalic. NECK: Supple. HEART: Regular rate. LUNGS: Show diminished breath sounds at the base. ABDOMEN: Soft, nontender to palpation without rebound or guarding. EXTREMITIES: Negative for clubbing, cyanosis, no edema. DERMATOLOGIC: No rashes. MUSCULOSKELETAL: No joint effusion. NEUROLOGIC: No change in exam. MEDICATIONS: Reviewed. LABORATORY DATA: Has been reviewed. IMAGING STUDIES: Have been reviewed. ASSESSMENT AND PLAN: 1. End-stage renal disease. The patient has a malfunctioning Perm-A-Cath. The patient will need a Perm-A-Cath exchange prior to next hemodialysis. 2. Hyperkalemia secondary to end-stage renal disease. Anticipate hemodialysis once the patient has received new Perm-A-Cath. 3. Anemia. Monitor hemoglobin and hematocrit levels. Continue Epogen as needed. 4. Mineral bone disorder. Monitor calcium and phosphorus levels. 5. Hypertension. Continue current blood pressure regimen. Continue ultrafiltration dialysis. 6. Status post respiratory failure. 7. History of chronic abdominal pain. Dictated By: SHAJI SANTIAGO/FAUSTINO Conf#: [id number] DID#: [id number]
[2019-03-02] MEDS ORDERED: HEPARIN 1000 UNITS/ML 10 ML INJ ONE ×2 (09:50→14:35)
[2019-03-02] MEDS ORDERED: LIDOCAINE 1%/EPI (1:100,000) (MDV) 20 ML ONE (10:25)
[2019-03-02] MEDS ORDERED: LIDOCAINE 1% (MDV) 20 ML INJ ONE (10:25)
[2019-03-02] MEDS ORDERED: FENTAnyl 50 MCG/ML VIAL ONE ×3 (10:35→14:47)
[2019-03-02] MEDS ORDERED: ONDANSETRON 4 MG INJ ONE (10:36)
[2019-03-02] MEDS: ONDANSETRON 4 MG INJ IV PRN ×2 (13:55→21:57)
--- NOTE | 2019-03-02 13:55 | PN ---
Date/Time of Note Date/Time of Note DATE: 03/02/19 TIME: 13:54 Assessment/Plan VTE Prophylaxis Risk score (from Ns)>0 risk: 2 SCD applied (from Ns): Yes Pharmacological prophylaxis: NA/contraindicated Pharm contraindication: low risk/ambulating Lines/Catheters IV [facility] Peripheral IV Assessment/Plan Hospital Course 1. Permacath malfunctioning -Plan for exchange today 2. ESRD on HD -Nephrology consult appreciated 3. Hypertension: BP with-in acceptable range Prophylaxis: Ambulation DC planning: Anticipate DC home tomorrow Result Diagram: 03/02/1945803/02/19458 Results 24hrs Laboratory Tests Test 03/02/19 04:59 White Blood Count 5.9 Red Blood Count 3.34 L Hemoglobin 10.4 L Hematocrit 30.7 L Mean Corpuscular Volume 91.9 Mean Corpuscular Hemoglobin 31.1 Mean Corpuscular Hemoglobin Concent 33.9 Red Cell Distribution Width 15.4 H Platelet Count 169 # Mean Platelet Volume 9.6 Immature Granulocytes % 0.300 Neutrophils % 54.9 Lymphocytes % 27.5 Monocytes % 8.9 Eosinophils % 7.7 H Basophils % 0.7 Nucleated Red Blood Cells % 0.0 Immature Granulocytes # 0.020 Neutrophils # 3.2 Lymphocytes # 1.6 Monocytes # 0.5 Eosinophils # 0.5 Basophils # 0.0 Nucleated Red Blood Cells # 0.0 Sodium Level 143 Potassium Level 5.3 H Chloride Level 101 Carbon Dioxide Level 27 Anion Gap 15 H Blood Urea Nitrogen 64 H Creatinine 11.16 H Est Glomerular Filtrat Rate mL/min 6 L Glucose Level 102 Calcium Level 8.8 Phosphorus Level 4.9 Magnesium Level 2.3 Subjective 24 Hr Interval Summary Constitutional: no complaints Exam/Review of Systems Exam Vitals Vital Signs Date Temp Pulse Resp B/P (MAP) Pulse Ox O2 O2 Flow FiO2 Time Delivery Rate 03/02/19 102 17 138/95 97 Nasal 2.0 12:09 (109) Cannula 03/02/19 98.2 11:38 Constitutional: alert, oriented Respiratory: clear to auscultation Cardiovascular: regular rate and rhythm Gastrointestinal: soft; No distended Musculoskeletal: nl extremities to inspection Results Results 24hrs Laboratory Tests Test 03/02/19 04:59 White Blood Count 5.9 Red Blood Count 3.34 L Hemoglobin 10.4 L Hematocrit 30.7 L Mean Corpuscular Volume 91.9 Mean Corpuscular Hemoglobin 31.1 Mean Corpuscular Hemoglobin Concent 33.9 Red Cell Distribution Width 15.4 H Platelet Count 169 # Mean Platelet Volume 9.6 Immature Granulocytes % 0.300 Neutrophils % 54.9 Lymphocytes % 27.5 Monocytes % 8.9 Eosinophils % 7.7 H Basophils % 0.7 Nucleated Red Blood Cells % 0.0 Immature Granulocytes # 0.020 Neutrophils # 3.2 Lymphocytes # 1.6 Monocytes # 0.5 Eosinophils # 0.5 Basophils # 0.0 Nucleated Red Blood Cells # 0.0 Sodium Level 143 Potassium Level 5.3 H Chloride Level 101 Carbon Dioxide Level 27 Anion Gap 15 H Blood Urea Nitrogen 64 H Creatinine 11.16 H Est Glomerular Filtrat Rate mL/min 6 L Glucose Level 102 Calcium Level 8.8 Phosphorus Level 4.9 Magnesium Level 2.3 Medications Medication Current Medications Ondansetron HCl (Zofran Inj) 4 mg BRIDGE ORDER PRN IV NAUSEA/VOMITING Last administered on 03/02/19at 07:39; Admin Dose 4 MG; Start 03/02/19 at 04:30; Stop 03/03/19 at 04:29 Acetaminophen (Tylenol Tab) 650 mg ER BRIDGE PRN PO .MILD PAIN 1-3 OR TEMP; Start 03/02/19 at 04:30; Stop 03/03/19 at 04:29 IV Flush (NS 3 ml) 3 ml PER PROTOCOL IV ; Start 03/02/19 at 07:30 Ondansetron HCl (Zofran Inj) 4 mg Q6H PRN IV NAUSEA/VOMITING; Start 03/02/19 at 07:30 Acetaminophen (Tylenol Tab) 650 mg Q6H PRN PO .PAIN 1-3 OR TEMP; Start 03/02/19 at 07:30 Albuterol/ Ipratropium (Duoneb) 3 ml Q2H RESP THERAPY PRN HHN SHORTNESS OF BREATH; Start 03/02/19 at 07:30 RYLAND BALDERAS Mar 02, 2019 13:55
--- NOTE | 2019-03-02 13:58 | RADRPT ---
PROCEDURE: Right internal jugular vein tunneled hemodialysis catheter removal. CLINICAL INDICATION: Right internal jugular vein tunneled dialysis catheter no longer required. TECHNIQUE: INTRAPROCEDURE MEDICATIONS: 1% lidocaine subcutaneous. The procedure, risks, benefits, complications and alternatives were explained to the patient. Consent was obtained. A procedural pause was performed prior to the procedure. The patient's name, date of b irth, and procedure to be performed were verified. The right anterior chest wall was prepped and draped. One percent lidocaine was used as local anesthe rashard at the site of the dialysis catheter. Fluoroscopic guidance was used. A 1 cm incision was made u tilizing a 11 blade scalpel. Utilizing blunt dissection the tunneled catheter was mobilized. The cat heter was then removed. Pressure was applied to the region of the internal jugular vein and the chest wall at the site of the catheter until adequate hemostasis was obtained. Several unsuccessful attem pts were made to replace with a new sterile dialysis catheter. However, the patient was not discomfor t due to lack of moderate sedation secondary to be helpful medial prior to the procedure. A dressing was applied. 1.6 minutes of fluoroscopy time was used. Several images of the chest were obtained wit h image intensifier. Specimens: None. Blood loss: 5 ml. Complications: None. Plate Maker Zinc: None. Anesthesia: Local Graft/Implant: None. COMPARISON: None. FINDINGS: Successful removal of tunneled dialysis catheter. Preoperative image demonstrates the tunneled dialys is catheter in position. Postoperative image demonstrates successful removal of the dialysis cathete r. IMPRESSION: 1. Successful removal of right internal jugular vein tunneled dialysis catheter. Physician Denia Date Time Electronically viewed and signed by Physician Denia on 03/02/2019 13:21 RD/
[2019-03-02] MEDS ORDERED: CEFAZOLIN 1 GM/50 ML (PMX) 50 ML IVPB ONE (14:35)
[2019-03-02] MEDS ORDERED: MIDAZOLAM 1 MG/ML 2 ML INJ ONE ×2 (14:36→14:46)
[2019-03-02] MEDS ORDERED: SOD CHLORIDE 0.9% 500 ML ONE (14:46)
[2019-03-02] MEDS: HYDROmorphONE 1 MG/ML SYG IV PRN ×2 (17:33→21:57)
--- NOTE | 2019-03-02 17:59 | RADRPT ---
PROCEDURE: PLACEMENT OF LEFT INTERNAL JUGULAR VENOUS TUNNELED DIALYSIS CATHETER. CLINICAL INDICATION: Renal failure. TECHNIQUE: Prior to the procedure, informed consent was obtained. Risks including bleeding, infection, and pneum othorax were explained to the patient. The patient understood and was willing to proceed. A procedura l pause was performed. The patient's name, date of , and procedure to be performed were verified . The left neck and anterior/superior chest wall was prepped and draped in usual sterile fashion. The central line was inserted with all elements of maximal sterile barrier technique. All of the foll owing were used: head covering, facial mask, sterile gown, sterile gloves, a large sterile sheet, reyes d hygiene, and 2% chlorhexidine for cutaneous antisepsis. Limited sonography of the left neck was then performed. Noted is a patent left internal jugular vein. Following the local injection of Xylocaine, the left internal jugular vein was punctured under sonogr aphic guidance with a 20-gauge needle through which a 0.018 inch floppy tip guidewire was advanced in to the superior vena cava. The tract was dilated to 5 Togolese and the wire was then replaced with a 0. 035 in Amplatz guidewire. A tunnel was then created from the anterior lateral aspect of the superior left chest wall to the puncture site in the neck and the catheter was pulled through the tract. Ser ial dilatation was then performed and a 16 Togolese peel away sheath was introduced. The 14.5 Togolese AngiodynamGeekatoo BioFlo DuraMax dialysis catheter was advanced through the 16 Togolese pee l-away sheath. The tip of the catheter was confirmed in position within the right atrium. The peel-aw ay sheath was removed. The 2 ports were each flushed with 2.5 ml of 1:1000 heparin. The catheter was secured to the skin wi th 2-0 silk. The wound in the neck was closed with 4-0 Vicryl suture using subcuticular running tech nique. The site was dressed. Specimens: None. Blood loss: 5 ml. Complications: None. Sql Developer Dba: None. Anesthesia: Local and moderate sedation. Graft/Implant: Tunneled dialysis catheter. COMPARISON: None. FINDINGS: Final images demonstrate the tip of the catheter in the upper right atrium. A total of 0.5 minutes o f fluoroscopy time was used. Several images of the chest were obtained with image intensifier. IMPRESSION: 1. Percutaneous insertion of left internal jugular dialysis tunneled dialysis catheter under fluorosc opic and sonographic guidance. Radhika Abebe Physician Date Time Electronically viewed and signed by Radhika Abebe Physician on 03/02/2019 16:00 RD/
[2019-03-02] MEDS: DIPHENHYDRAMINE 50 MG INJ IV PRN (21:15)
[2019-03-03] VITALS (19 sets, daily range): BP systolic 106–137; BP diastolic 67–97; PULSE 83–103; RESP 18–20; Ht 160 cm; Wt 63.0 kg
[2019-03-03] MEDS: HYDROmorphONE 1 MG/ML SYG IV PRN ×6 (01:54→22:26)
[2019-03-03] MEDS: DIPHENHYDRAMINE 50 MG INJ IV PRN ×3 (06:18→22:26)
--- NOTE | 2019-03-03 08:51 | PN ---
DATE: 03/03/2019 SUBJECTIVE: The patient yesterday had a Perm-A-Cath placement and hemodialysis, tolerated well. No other events noted. OBJECTIVE: VITAL SIGNS: Blood pressure is 125/82, respirations 20, pulse 97, temperature is 97.6. HEENT: Head is normocephalic. NECK: Supple. HEART: Regular rate. LUNGS: Show diminished breath sounds at the base. ABDOMEN: Soft, nontender to palpation. No rebound or guarding. EXTREMITIES: Negative for clubbing, cyanosis, no edema. DERMATOLOGIC: No rashes. MUSCULOSKELETAL: No joint effusions. NEUROLOGIC: No change in exam. MEDICATIONS: Reviewed. LABORATORY DATA: Have been reviewed. IMAGING STUDIES: Have been reviewed. ASSESSMENT AND PLAN: 1. End-stage renal disease. The patient is status post Perm-A-Cath placement. Had hemodialysis yes terday, tolerated well. Anticipate next dialysis on 1 to 2 days. 2. Hyperkalemia status post hemodialysis. We will follow up renal panel. Recommend patient be on a low potassium diet. 3. Anemia. Monitor hemoglobin and hematocrit levels. Continue Epogen. 4. Mineral bone disorder. Monitor calcium and phosphorus levels. 5. Hypertension. Continue current blood pressure regimen. 6. Status post respiratory failure. 7. History of chronic abdominal pain. Dictated By: SHAJI LUX DO NR/NTS Conf#: [id number] DID#: [id number] CC: CHENTE STEEL MD;*EndCC*
[2019-03-03] MEDS ORDERED: HEPARIN 1000 UNITS/ML 10 ML INJ CATHETER SCH (16:00)
--- NOTE | 2019-03-03 17:47 | PDOCDIS ---
Discharge Instructions CONDITION [id number] Patient Condition: [id number] Good HOME CARE INSTRUCTIONS: [id number] Special Diet: [id number] Renal ACTIVITY: [id number] Activity Restrictions: [id number] No Restrictions FOLLOW UP/APPOINTMENTS Follow-up Plan FOLLOW UP WITH YOUR PRIMARY CARE PHYSICIAN IN 1-2 WEEKS, follow-up with your dialysis center as scheduled RYLAND BALDERAS Mar 03, 2019 17:47
--- NOTE | 2019-03-03 17:49 | DS ---
Date/Time of Note Date/Time of Note DATE: 03/03/19 TIME: 17:47 Discharge Summary Admission/Discharge Info Admit Date/Time Mar 02, 2019 at 04:27 Discharge Date/Time March 03, 2019 Discharge Diagnosis 1. Permacath malfunctioning Status post exchange 2. ESRD on HD Dialysis done in house, nephrology consultation appreciated Patient Condition: Good Hospital Course Patient is a 33-year-old male with a history of end-stage renal disease who presented for permacath malfunction. Patient did undergo a permacath exchange and was dialyzed successfully. Patient was stable for DC, on the day of discharge patient vitals, labs of his exam are stable. Home Meds Discontinued Reported Medications Multivitamins* (Theragran*) 1 Tab Tab, 1 TAB PO DAILY, TAB 05/20/17 Follow-up Plan FOLLOW UP WITH YOUR PRIMARY CARE PHYSICIAN IN 1-2 WEEKS, follow-up with your dialysis center as scheduled Primary Care Provider Jag Valdovinos MD Time spent on discharge: > 30 minutes RYLAND BALDERAS Mar 03, 2019 17:49
[2019-03-04] MEDS: HYDROmorphONE 1 MG/ML SYG IV PRN ×4 (02:26→14:48)
[2019-03-04 02:39] VITALS: BP 110/72; PULSE 101; RESP 20
[2019-03-04] MEDS: ONDANSETRON 4 MG INJ IV PRN (05:11)
[2019-03-04] MEDS: DIPHENHYDRAMINE 50 MG INJ IV PRN (06:32)
[2019-03-04 07:41] VITALS: BP 116/80; PULSE 94; RESP 18
--- NOTE | 2019-03-04 08:57 | PN ---
DATE: 03/04/2019 SUBJECTIVE: The patient is stable, had hemodialysis yesterday, tolerated it well. OBJECTIVE: VITAL SIGNS: Blood pressure is 116/80, pulse 94, respiration 18, temperature 98.5. HEENT: Head is normocephalic. NECK: Supple. HEART: Regular rate. LUNGS: Show diminished breath sounds at the base. ABDOMEN: Soft, nontender to palpation without rebound or guarding. EXTREMITIES: Negative for clubbing, cyanosis, no edema. DERMATOLOGIC: No rashes. MUSCULOSKELETAL: No joint effusion. NEUROLOGIC: No change in exam. MEDICATIONS: The patient's medications have been reviewed. LABORATORY DATA: Reviewed. IMAGING STUDIES: Reviewed. ASSESSMENT AND PLAN: 1. End-stage renal disease. The patient is status post Perm-A-Cath exchange. The patient had hemod ialysis yesterday, tolerated well. Anticipate next dialysis tomorrow. 2. Hyperkalemia secondary to end-stage renal disease, improved. 3. Anemia. Monitor hemoglobin and hematocrit levels. Continue Epogen as needed. 4. Mineral bone disorder, monitor calcium and phosphorus levels. 5. Hypertension. Continue current blood pressure regimen. 6. Status post respiratory failure. 7. History of chronic abdominal pain. Dictated By: SHAJI LUX DO NR/NTS Conf#: [id number] DID#: [id number] CC: CHENTE STEEL MD; RYLAND BALDERAS MD;*EndCC*
[2019-03-04] MEDS ORDERED: OXYC-279 PO (12:00)
--- NOTE | 2019-03-04 12:01 | DS ---
Date/Time of Note Date/Time of Note DATE: 03/04/19 TIME: 12:00 Discharge Summary Admission/Discharge Info Admit Date/Time Mar 02, 2019 at 04:27 Discharge Date/Time March 04, 2019 Discharge Diagnosis 1. Permacath malfunctioning Status post exchange Patient still with some pain, DC with pain meds 2. ESRD on HD Dialysis done in house, nephrology consultation appreciated Continue outpatient dialysis Patient Condition: Good Hospital Course Patient is a 33-year-old male with a history of end-stage renal disease who presented for permacath malfunction. Patient did undergo a permacath exchange and was dialyzed successfully. Patient was stable for DC, on the day of discharge patient vitals, labs of his exam are stable. Home Meds Active Scripts Oxycodone HCl/Acetaminophen (Percocet 5-325 mg Tablet) 1 Each Tablet, 1 EACH PO Q4 for PAIN, #20 TAB Prov:RYLAND BALDERAS 03/04/19 Discontinued Reported Medications Multivitamins* (Theragran*) 1 Tab Tab, 1 TAB PO DAILY, TAB 05/20/17 Follow-up Plan FOLLOW UP WITH YOUR PRIMARY CARE PHYSICIAN IN 1-2 WEEKS, follow-up with your dialysis center as scheduled Primary Care Provider Jag Valdovinos MD Time spent on discharge: > 30 minutes RYLAND BALDERAS Mar 04, 2019 12:01
[2019-03-04 14:31] VITALS: BP 106/71; PULSE 95; RESP 18
== END 2019-03-04 15:45 | disposition home or self-care (01) ==
LOC: E/R 04:09 → 2NE 04:27
PROVIDERS: ADMIT Internal Medicine; ATTEND Internal Medicine
DX: T82.41XA Breakdown (mechanical) of vascular dialysis catheter, initial encounter (principal); I12.0 Hypertensive chronic kidney disease with stage 5 chronic kidney disease or end stage renal disease; N18.6 End stage renal disease; Z99.2 Dependence on renal dialysis; Z86.73 Personal history of transient ischemic attack (TIA), and cerebral infarction without residual deficits; D64.9 Anemia, unspecified; M89.8X9 Other specified disorders of bone, unspecified site; Y84.1 Kidney dialysis as the cause of abnormal reaction of the patient, or of later complication, without mention of misadventure at the time of the procedure
CPT/HCPCS: 36415; 36558; 36589; 71045; 80048; 80053; 83735; 84100; 85025; 87081; 90935; 93005; 99285; C1750; J0690; J1170; J1200; J1644; J2250; J2405; J3010; J7040; Z7500; Z7610; 32552; G0378

== ENCOUNTER 2019-03-05 22:53 | Emergency (ER) | payer BC ==
[~2019-03-05] VITALS: Ht 177.8 cm; Wt 79.0 kg
[~2019-03-05 22:53] MED LIST changes: -MULTI PO; +OXYC-279 PO
[2019-03-05 22:58] VITALS: Ht 177.8 cm; Wt 79.0 kg
[2019-03-06] MEDS ORDERED: ONDANSETRON 4 MG INJ IV STA (02:12)
--- NOTE | 2019-03-06 04:36 | ERD ---
ER Documentation Chief Complaint Chief Complaint c/o sob and pain dialysis cath site (left upper chest) HPI Is a 35 mL complains of shortness of breath and pain in his dialysis cath site his left upper chest since earlier today. He was recently discharged for similar complaints. Denies fevers chills nausea vomiting. He says shortness of breath is increased. Denies any palomo chest pain. Complains of only pain at catheter site. ROS All systems reviewed and are negative except as per history of present illness. Medications Home Meds Active Scripts Oxycodone HCl/Acetaminophen (Percocet 5-325 mg Tablet) 1 Each Tablet, 1 EACH PO Q4 for PAIN, #20 TAB Prov:RYLAND BALDERAS 03/04/19 Discontinued Reported Medications Multivitamins* (Theragran*) 1 Tab Tab, 1 TAB PO DAILY, TAB 05/20/17 Allergies Allergies: Coded Allergies: No Known Drug Allergies (Unverified Allergy, Unknown, 03/02/19) PMhx/Soc History of Surgery: Yes (cholecystectomy,Permacath placement L chest 03/02/2019) Anesthesia Reaction: No Hx Neurological Disorder: No Hx Respiratory Disorders: No Hx Cardiac Disorders: Yes (HTN) Hx Psychiatric Problems: No Hx Miscellaneous Medical Probl: Yes (CRF,hemodialysis MWF,anuric) Hx Alcohol Use: No Hx Substance Use: No Hx Tobacco Use: Yes (daily,last smoked 03/02/2019) Smoking Status: Current every day smoker Physical Exam Vitals Vital Signs Date Temp Pulse Resp B/P (MAP) Pulse Ox O2 O2 Flow FiO2 Time Delivery Rate 03/06/19 Nasal 2 02:03 Cannula 03/06/19 Nasal 2.0 01:49 Cannula 03/06/19 112 20 158/80 98 Room Air 01:23 (106) 03/05/19 99.2 115 20 137/91 96 22:58 (106) Physical Exam Const: No acute distress Head: Atraumatic Eyes: Normal Conjunctiva ENT: Normal External Ears, Nose and Mouth. Neck: Full range of motion. No meningismus. Resp: Clear to auscultation bilaterally Cardio: Regular rate and rhythm, no murmurs Abd: Soft, non tender, non distended. Normal bowel sounds Skin: No petechiae or rashes Back: No midline or flank tenderness Ext: No cyanosis, or edema Neur: Awake and alert Psych: Normal Mood and Affect Result Diagram: 03/06/19 0201 03/06/19 0201 Results 24 hrs Laboratory Tests Test 03/06/19 02:01 03/06/19 02:02 White Blood Count 5.9 10^3/ul Red Blood Count 3.56 10^6/ul Hemoglobin 11.0 g/dl Hematocrit 33.0 % Mean Corpuscular Volume 92.7 fl Mean Corpuscular Hemoglobin 30.9 pg Mean Corpuscular Hemoglobin Concent 33.3 g/dl Red Cell Distribution Width 16.0 % Platelet Count 187 10^3/UL Mean Platelet Volume 9.7 fl Immature Granulocytes % 0.200 % Neutrophils % 64.0 % Lymphocytes % 22.9 % Monocytes % 9.5 % Eosinophils % 2.7 % Basophils % 0.7 % Nucleated Red Blood Cells % 0.0 /100WBC Immature Granulocytes # 0.010 10^3/ul Neutrophils # 3.8 10^3/ul Lymphocytes # 1.4 10^3/ul Monocytes # 0.6 10^3/ul Eosinophils # 0.2 10^3/ul Basophils # 0.0 10^3/ul Nucleated Red Blood Cells # 0.0 10^3/ul Prothrombin Time 13.9 Sec Prothrombin Time Ratio 1.1 INR International Normalized Ratio 1.06 Activated Partial Thromboplast Time 39.1 Sec Sodium Level 144 mmol/L Potassium Level 4.9 mmol/L Chloride Level 95 mmol/L Carbon Dioxide Level 37 mmol/L Anion Gap 12 Blood Urea Nitrogen 28 mg/dl Creatinine 6.19 mg/dl Est Glomerular Filtrat Rate mL/min 13 mL/min Glucose Level 124 mg/dl Calcium Level 8.8 mg/dl Total Bilirubin 0.9 mg/dl Direct Bilirubin 0.00 mg/dl Indirect Bilirubin 0.9 mg/dl Aspartate Amino Transf (AST/SGOT) 19 IU/L Alanine Aminotransferase (ALT/SGPT) < 6 IU/L Alkaline Phosphatase 584 IU/L Troponin I 0.285 ng/ml B-Type Natriuretic Peptide 03623 PG/ML Total Protein 9.3 g/dl Albumin 4.5 g/dl Globulin 4.80 g/dl Albumin/Globulin Ratio 0.93 POC Venous Lactate 2.0 mmol/L Current Medications Medications Dose Sig/Lia Start Time Status Last (Trade) Ordered Route PRN Stop Time Admin Dose Reason Admin Ondansetron 4 mg ONCE STAT 03/06/19 DC HCl (Zofran IV 02:12 03/06/19 Inj) 02:17 Procedures/MDM EKG: Rate/Rhythm: [Normal Sinus Rhythm] QRS, ST, T-waves: [No changes consistent w/ acute ischemia] Impression: [No evidence of ischemia or arrhythmia] Chest X-ray 1V Interpreted by me: Soft Tissue: No acute abnormalities Bones: No acute abnormalities Mediastinum/Cardiac Silhouette/Lungs: [No acute abnormalities] Medical decision making: Patient's symptoms are concerning for cardiac cause will require inpatient workup and continuous monitoring. Further w/u for ischemia, arrhythmia, PE or dissection will be deferred to the inpatient team. Of note, patient's troponin is elevated since his discharge around 24 hours ago. He had a troponin of 0.048 on , his current troponin is almost 0.3. Accepting Care Team: Current data and ongoing care discussed. Time: 4 AM Primary Provider: Dr. Taylor Consulting: Deferred to inpatient team Outstanding Data: none Departure Diagnosis: Primary Impression: Non-STEMI (non-ST elevated myocardial infarction) Condition: Serious CHENTE FALLON Mar 06, 2019 04:36
[2019-03-06] MEDS ORDERED: HYDROmorphONE 0.5 MG/0.5 ML SYG IV STA (04:48)
[2019-03-06] MEDS ORDERED: NITROGLYCERIN 2% 1 GM OINT PKT TD STA (07:27)
[2019-03-06] MEDS ORDERED: ASPIRIN 81 MG TAB PO STA (07:27)
--- NOTE | 2019-03-06 07:28 | QN ---
Documentation Comment Patient was signed out to me by Dr. Moore. The patient's troponin is rising and the second troponin is higher than the first. Given the fact that her Computational Physicist is nonfunctional at this time Dr. Taylor has requested a transfer for higher level of care. We will attempt to find an accepting facility as the patient may require cardiac catheterization that cannot be performed here at [facility]. ZURDO SUTHERLAND MD Mar 06, 2019 07:28
[2019-03-06] MEDS ORDERED: NITROGLYCERIN (SL) 0.4 MG TAB SL PRN (07:30)
[2019-03-06 08:25] VITALS: BP 120/89; PULSE 92; RESP 19
== END 2019-03-06 09:25 | disposition left against medical advice (07) ==
LOC: E/R 22:53
DX: I21.4 Non-ST elevation (NSTEMI) myocardial infarction (principal); R40.2142 Coma scale, eyes open, spontaneous, at arrival to emergency department; R40.2362 Coma scale, best motor response, obeys commands, at arrival to emergency department; R40.2252 Coma scale, best verbal response, oriented, at arrival to emergency department; N18.9 Chronic kidney disease, unspecified; I12.9 Hypertensive chronic kidney disease with stage 1 through stage 4 chronic kidney disease, or unspecified chronic kidney disease; F17.210 Nicotine dependence, cigarettes, uncomplicated; Z99.2 Dependence on renal dialysis
CPT/HCPCS: 36415; 71045; 80053; 83605; 83880; 84484; 85025; 85610; 85730; 86305; 87040; 93005; 96374; 99285; J1170; Z7610